=== PATIENT | female | born 1940 | race Caucasian/White ===

== ENCOUNTER 2023-09-19 09:33 | Inpatient (IN) | payer OTHER, SELFPAY ==
[2023-09-19] VITALS (46 sets, daily range): BP systolic 114–204; BP diastolic 47–157; PULSE 2–90; BMI 30.9
[2023-09-19] MEDS: DUONEB 3 ML INH (07:38)
[2023-09-19 07:39] LABS: % Basophils 0.9 % (0-2); % Eosinophils 2.1 % (0-6); % Immature Granulocytes 0.7 % (0-0.5); % Lymphocytes 29.5 % (20.5-51.1); % Monocytes 7.6 % (1.7-9.3); % Neutrophils 59.2 % (42.2-75.2); Absolute Basophils 0.1 10^3/uL (0-0.2); Absolute Eosinophils 0.3 10^3/uL (0-0.7); Absolute Immature Granulocytes 0.1 10^3/uL (0-0.05); Absolute Lymphocytes 4.5 10^3/uL (1.2-3.4); Absolute Monocytes 1.2 10^3/uL (0.1-0.6); Absolute Neutrophils 8.9 10^3/uL (1.4-6.5); Hematocrit 35.3 % (37.0-47.0); Hemoglobin 10.4 g/dL (12.0-16.0); Mean Corp Hgb Conc. 29.5 g/dL (33.0-37.0); Mean Corpuscular Hgb 25.2 pg (27.0-31.0); Mean Corpuscular Volume 85.7 fL (81.0-99.0); Mean Platelet Volume 9.8 fL (7.4-10.4); Nucleated Red Blood Cells % 0 %; Platelet Count 415 10^3/uL (130-400); Red Blood Cell Count 4.12 10^6/uL (4.20-5.40); Red Cell Dist. Width 15.8 % (11.5-14.5); White Blood Cell Count 15.1 10^3/uL (4.8-10.8)
[2023-09-19 07:51] LABS: INR 1.35; PT 16.5 Sec (11.4-14.6)
[2023-09-19 07:53] LABS: Lactic Acid 3.5 mmol/L (0.7-2.0)
[2023-09-19 07:54] LABS: ALT (SGPT) 15 U/L (0-35); AST (SGOT) 27 U/L (14-36); Albumin 4.1 g/dl (3.5-5.0); Alkaline Phosphatase 71 U/L (38-126); Blood Urea Nitrogen 22 mg/dl (7-17); Calcium 8.9 mg/dl (8.4-10.2); Carbon Dioxide 25 mmol/L (22-30); Chloride 105 mmol/L (98-107); Glucose 341 mg/dl (70-99); Potassium 4.2 mmol/L (3.5-5.1); Sodium 141 mmol/L (135-145); Total Bilirubin 0.3 mg/dl (0.2-1.3); Total Protein 6.7 g/dl (6.3-8.2); eGFR 56.95
--- NOTE | 2023-09-19 07:56 | ED.GENMED ---
History of Present Illness
General
Chief Complaint: Breathing Problem
Source: ambulance crew
Exam Limitations: clinical condition
Time Seen by Provider: 09/19/23 07:25
Nursing documentation reviewed up to this point in time: agreed with
History of Present Illness
History of Present Illness:
82-year-old female presents emergency department from [facility] complaining of shortness of breath. Began last night. Patient did not call EMS then because she thought it would improve. EMS found her with room air oxygen saturation of 30%.
It improved on nonrebreather to 95%. She had a moment of decreased responsiveness upon arrival.
Past History
Past History
ED Past Medical History: CAD and CHF
ED Past Surgical History: Cardiac (Cardiac stent)
Social History
Tobacco: Non-smoker
Alcohol: None
Drug: None
Living: assisted living
Review of Systems
Review of Systems
Allergies reviewed?: Yes
All Other Systems: Not applicable
Constitutional: Denies fever
Respiratory: Reports trouble breathing
Phy Exam
Physical Exam
Physical Exam:
Physical Exam
General: Severe respiratory distress on nonrebreather
Neck: supple. no meningeal signs. normal posterior pharynx
Heart: s1/s2 regular rate and rhythm, no murmur. equal radial
pulses.
HEENT: Pupils equal round reactive to light, EOMI
Lungs: Severe respiratory distress. Rales bilaterally
Abdomen: normal bowel sounds. not tender. no CVAT
Neuro: alert and responding to and. no focal neurological deficits cranial nerves II through XII intact
Skin: no rash
Psychiatric: well kept. interactive and cooperative
Extremities: no edema. no calf tenderness. negative homans. good distal pulses
Scores
Heart Failure Risk
Heart Failure Risk Score: Yes
History of Stroke or TIA: Yes
History of intubation for respiratory distress: No
Heart rate on ED arrival >/= 110: No
SaO2 <90% on arrival on room air: Yes
HR >/=110 during 3min walk test (or too ill to perform test): Yes
ECG has acute ischemic changes: No
Urea >/=12mmol/L (BUN 33.6mg/dL): No
Serum CO2>/=35mmol/L: No
Troponin I or T elevated to NE Level (0.4mg/dL): No
NT-proBNP >/=5,000ng/L (5,000pg/ml): Yes
HF Risk Score: 5
Admission Status: VERY HIGH RISK 39.8% Consider admission to hospital
Course
Orders/Labs/Results
Orders:
Orders
09/19/23 07:26
Cardiac Monitoring- Treatment ONCE
IV Insert/Care/Rem.- Treatment PRN
Ipratropium/Albuterol Sulfate [Duoneb] 3 ml INH R NOW STA
Pulse Ox/cont/shift [RESP] Stat
Quantity: 1
09/19/23 07:27
EKG [Electrocardiogram (*1)] Urgent
Reason for Study: Chest Pain
EKG- Treatment ONCE
09/19/23 07:28
Electrocardiogram (*1) Stat
Reason for Study: Other
Other Reason for Exam: pneumonia
EKG- Treatment ONCE
Portable Chest Xray [CR Chest Portable - 1 View] Urgent
Comment:
Reason For Exam: respiratory
Reason Study Needs to be Portable: Patient Unstable
Bipap [RESP] Urgent
Patient to use own unit?: No
Inspiratory Pressure (cm H2O): 10
Expiratory Pressure (cm H2O): 5
09/19/23 07:32
Complete Blood Count/With Diff Urgent
Comprehensive Metabolic Panel Urgent
Lactic Acid Q4H
Comment: CANCEL 2nd LACTIC ACID IF 1st LACTIC ACID IS LESS THAN 2
NT-proBNP Urgent
Prothrombin Time Urgent
Troponin I Urgent
09/19/23 07:48
Furosemide [Lasix] 40 mg IV NOW STA
Nitroglycerin 100 mg/250 ml [Nitroglycerin Premix] 100 mg in 250 ml IV NOW
Initial dose in mcg/min, then titrate:: 10
Titrate to keep:: SBP < 160 mmHg
Titrate by mcg/min:: 5 mcg/min, may increase by 10 mcg/min if dose > 20 mcg/min
Frequency of titrations (minutes):: every 3-5 minutes
Maximum dose in mcg/min:: 200
Begin to taper infusion when:: Remained at goal for 2hrs
Taper by mcg/min:: 5 mcg/min
Frequency of taper (minutes) if patient maintains goal:: 30
Taper to off?: Yes
If infusion off & no longer maintaining goal:: Contact Provider
09/19/23 07:52
Furosemide [Lasix] 40 mg .ROUTE .STK-MED ONE
Nitroglycerin 100 mg/250 ml [Nitroglycerin Premix] 100 mg in 250 ml .ROUTE .STK-MED
09/19/23 09:10
Admit/Transfer Patient As Directed
Co-Sign Provider:
Level of Care: Inpatient admission
Assign to:: IVU
Physician / Group: Inga
Diagnosis: Acute CHF
Reason for Hospitalization: Pulm edema, acute heart failure, cardiology consult
Expected length of stay greater than two midnights?: Yes
ELOS- Estimated Length of Stay in days: 3
I certify the patient meets the requirements for IP care: Yes
09/19/23 09:11
Code Status As Directed
Resuscitation Status: Limited DNR
Limited DNR: -No intubation
09/19/23 12:36
Acetaminophen [Tylenol] 650 mg PO Q6HPRN PRN
Amiodarone [Pacerone] 200 mg PO DAILY
Apixaban [Eliquis] 5 mg PO BID
Clopidogrel Bisulfate [Plavix] 75 mg PO DAILY
Metoprolol Xl [Toprol Xl] 25 mg PO DAILY
09/19/23 12:36
Echo 2D MMode Color/Doppler [Echo 2D MMode Color/Doppler] Routine
Reason for Study: CHF
CARDIOLOGY CONSULT Routine
Consulting Provider: Isacc Sandoval
Was physician already notified: Yes
Activity As Directed
Activity Level: With Assistance
I&O [Intake/ Output] As Directed
Frequency: q12h
09/19/23 13:32
Lactic Acid Q4H
Comment: CANCEL 2nd LACTIC ACID IF 1st LACTIC ACID IS LESS THAN 2
09/19/23 16:00
Furosemide [Lasix] 40 mg IV BID AT 0800,1600
09/20/23 06:00
BMP [Basic Metabolic Panel] IN AM
CBC/With Diff [Complete Blood Count/With Diff] IN AM
09/21/23 06:00
BMP [Basic Metabolic Panel] IN AM
Abnormal Lab Results
09/19/23
07:32
WBC 15.1 H 10^3/uL
(4.8-10.8)
RBC 4.12 L 10^6/uL
(4.20-5.40)
Hgb 10.4 L g/dL
(12.0-16.0)
Hct 35.3 L %
(37.0-47.0)
MCH 25.2 L pg
(27.0-31.0)
MCHC 29.5 L g/dL
(33.0-37.0)
RDW 15.8 H %
(11.5-14.5)
Plt Count 415 H 10^3/uL
(130-400)
Abs Immat Gran (auto) 0.1 H 10^3/uL
(0-0.05)
Absolute Neuts (auto) 8.9 H 10^3/uL
(1.4-6.5)
Absolute Lymphs (auto) 4.5 H 10^3/uL
(1.2-3.4)
Absolute Monos (auto) 1.2 H 10^3/uL
(0.1-0.6)
Immature Gran % 0.7 H %
(0-0.5)
PT 16.5 H Sec
(11.4-14.6)
BUN 22 H mg/dl
(7-17)
Glucose 341 H mg/dl
(70-99)
Lactic Acid 3.5 H mmol/L
(0.7-2.0)
09/19/23 07:32
09/19/23 07:32
Vital Signs
Initial and Last Documented VS:
Initial Vital Signs
Pulse Resp BP Pulse Ox
89 17 181/82 97
09/19/23 07:22 09/19/23 07:22 09/19/23 07:22 09/19/23 07:22
Last Documented Vital Signs
Temp Pulse Resp BP Pulse Ox
98.2 F 67 20 118/62 98
09/19/23 14:35 09/19/23 14:35 09/19/23 14:35 09/19/23 14:35 09/19/23 14:45
MDM/Problems Addressed
Differential Diagnosis Includes:
Respiratory failure, CHF, pneumonia
MDM/Problems Addressed:
82-year-old female with respiratory failure, CHF. Admit to hospitalist.
Chronic conditions affecting care: CAD and Cardiomyopathy
Acute Exacerbation and/or Progression of Chronic Illness: CAD and Cardiomyopathy
*Radiology
Radiology exam reviewed: preliminary read by ED provider (Chest x-ray shows bilateral pulmonary edema)
*Pulse Oximetry
Patient hypoxic: yes
*EKG
Interpreted by ED Provider?: Yes
EKG Intrepretation Date: 09/19/23
EKG Intrepretation Time: :24
Interpretation: abnormal
Comparison EKG: no comparison EKG present
Heart Rate: 89
Rate: normal
Rhythm: av sequential
[place]: normal axis
Interval: normal interval
QRS Pattern: normal QRS
Ischemia: no ischemia
*Lube Man Interpretation
Rate: normal
Interpretation: abnormal
Heart Rate: 89
Rhythm: av sequential
*Critical Care Note
Total Time (30-74mins, 75-104mins- exclusive of procedures): 30
comment:
Critical care statement: A total of 30 minutes of critical care time was provided for this patient. This includes management of unstable vital signs, evaluation of the patient at bedside, reviewing the patient's pertinent medical records, discussion
with consultants, review of old EKGs and review of pertinent medical records. This time with separate from time utilized to perform the aforementioned documented procedures
Patient Management
Social determinants of health affecting care: Living situation
Discussion with other providers: Hospitalist
Escalation/DeEscalation of care consider admission/obs:
Admit indicated
ED Attending Note
-
Portions of this chart may have been created with voice recognition software.� Occasional wrong word or��sound alike� substitutions may have occurred due to the inherent limitations of voice recognition software.
Discharge Plan
Departure
Patient Disposition: Admit
Date of Disposition: 09/19/23
Time of Disposition: 08:21
Admit to: ICU
Presentation/result/management discussed w/ accepting MD/DO: Hospitalist
Patient with high blood pressure during this ER visit?: Yes
Condition: Serious
Discharge Problem:
Acute exacerbation of CHF (congestive heart failure), Respiratory failure
Interventions
Interventions:
*Risk Screen - Suicide Last Done: 09/19/23 12:52
ED- Fall Risk Assessment Last Done: 09/19/23 07:27
*ED COVID-19 Vaccine History Last Done: 09/19/23 12:52
*Nursing Disposition Last Done: 09/19/23 12:30
ED- Cardiac Assessment Last Done: 09/19/23 07:27
ED- Pulmonary Assessment Last Done: 09/19/23 07:27
Discharge Date and Time
Discharge Date/Time: 09/19/23 12:30
[2023-09-19] MEDS: NITROGLYCERIN PREMIX 250 IV (08:04)
[2023-09-19 08:05] LABS: Troponin I < 0.012 ng/ml
[2023-09-19] MEDS: LASIX 40 MG IV ×2 (08:05→16:24)
[2023-09-19 08:26] LABS: NT-proBNP 5350 pg/ml
--- NOTE | 2023-09-19 09:29 | HPS.HSE ---
Addendum entered and electronically signed by Lion Xiong DO 09/19/23 10:02:
I was able to reach patient's daughter Guerline Castellanos, provided her an update. Phone number [phone].
I placed an order for records from [facility].
.
Original Note:
Family Physician
-
Family Physician: INTERVIEWE UNKNOWN - PT NOT
Chief Complaint
-
Shortness of breath
History of Present Illness
82-year-old female with a history of heart disease with shortness of breath that started last night. She was transferred to the emergency room early this morning from [facility]. Most of her medical care is in [facility]. Her
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 Reyes.
She denies chest pressure. Has had a cough lately.
Medical History
Past Medical History
Past Medical History: Reports Other
Additional Past Medical History:
CAD/STEMI
Chronic heart failure preserved EF
Essential hypertension
Hypothyroidism
Paroxysmal atrial fibrillation
Stroke
Osteoporosis
Ambulatory dysfunction
Hyperlipidemia
Kyphosis
Past Surgical History: Reports Other
Additional Past Surgical History:
Pacemaker
Social History
Tobacco: Non-smoker
Alcohol: None
Drug: None
Living: Assisted Living
Family History
Family History: Not pertinent
Allergies / Home Medications
Allergies reflects when Allergies were last updated in [facility].
Home Medications with original date entered in [facility]
Allergy/Medication List:
Allergies
Allergy/AdvReac Type Severity Reaction Status Date / Time
No Known Allergies Allergy Verified 06/14/22 14:15
Home Medications
alendronate 70 mg tablet 70 mg PO WEEKLY 06/14/22
atenolol 50 mg tablet 75 mg PO DAILY 06/14/22
calcium carbonate 600 mg-vitamin D3 5 mcg (200 unit) capsule (Calcium 600 + D(3)) 2 cap PO BID 06/14/22
ibuprofen 200 mg capsule 400 mg PO Q6H PRN mild pain 06/14/22
levothyroxine 100 mcg tablet 100 mcg PO DAILY 06/14/22
multivitamin 1 tab PO DAILY 06/14/22
psyllium husk 0.4 gram capsule (Fiber (psyllium husk)) 0.4 g PO DAILY 06/14/22
simvastatin 20 mg tablet 20 mg PO HS 06/14/22
trazodone 50 mg tablet 50 mg PO HS PRN sleep 06/14/22
Review of Systems
-
History Source: Patient
A 12 point ROS was completed and negative except as noted: Yes
Respiratory: Reports Trouble Breathing
Physical Exam
Vital Signs
Vital Signs
Temp Pulse Resp BP Pulse Ox
98.4 F 77 23 146/66 96
09/19/23 07:54 09/19/23 08:20 09/19/23 08:20 09/19/23 08:20 09/19/23 08:20
Physical Exam
General: Well Developed, Well Nourished, No Apparent Distress and Comfortable
HEENT: NormoCephalic, Anicteric and Moist mucous membranes
Respiratory: Rales
Cardiac: S1/S2 and Regular Rhythm
Breast: Deferred by me
GI: Soft, Non Tender and Non Distended
Genito-urinary: Deferred by me
Musculoskeletal: No Clubbing, No Cyanosis and No Edema
Skin: Warm and Dry
Neuro: AO x 3
Hematologic/Lymphatic: No Lymphadenopathy
Psych: Calm
Laboratory Results
-
09/19/23 07:32
09/19/23 07:32
Laboratory Results
PT 16.5 Sec (11.4-14.6) H 09/19/23 07:32
INR 1.35 09/19/23 07:32
Lactic Acid 3.5 mmol/L (0.7-2.0) H 09/19/23 07:32
Total Bilirubin 0.3 mg/dl (0.2-1.3) 09/19/23 07:32
AST 27 U/L (14-36) 09/19/23 07:32
ALT 15 U/L (0-35) 09/19/23 07:32
Alkaline Phosphatase 71 U/L (38-126) 09/19/23 07:32
Troponin I < 0.012 ng/ml 09/19/23 07:32
Impression/Plan
-
Acute hypoxic respiratory failure -due to acute pulmonary edema due to acute heart failure exacerbation. Pulse ox reported in the 30% range prior to arrival. Placed on BiPAP in the emergency room.
Already feeling better, transitioned to 4 L nasal cannula with pulse ox in the 90 percentile range. Admit to IVU.
Acute on chronic heart failure with preserved EF exacerbation -presentation with acute pulmonary edema. Chest x-ray reviewed. BNP 5330. Continue IV Lasix. Consult cardiology. Check echocardiogram.
CAD -with prior LAD stent in June 2022, [facility]. Troponin this morning negative, will trend. EKG shows atrial sensed ventricular paced rhythm. No previous EKGs available. Continue Plavix.
Essential hypertension with hypertensive emergency -continue nitroglycerin drip. Resume home meds including metoprolol, losartan. Anticipate blood pressure improvement with diuresis.
Paroxysmal atrial fibrillation - continue Eliquis, amiodarone.
Hyperlipidemia -on simvastatin.
History of stroke
Hypothyroidism -continue levothyroxine.
Permanent pacemaker
Osteoporosis
Limited DNR -no intubation, she is okay with CPR.
I left a voicemail for daughter Ashley to call me back.
--- NOTE | 2023-09-19 12:45 | PTCARENOTE ---
Received the patient from the ED in a stretcher. The patient is aoox3, BP 164/62, 98% on 3L. NSR noted on the monitor. Nitroglycerin gtt running at 10mcg/min. She has no complaints of pain. Scattered crackles heard throughout lungs. She ambulated to
the bed x1 assist and without difficulty. I oriented her to her room and her call rosas is within reach.
[2023-09-19] MEDS: PACERONE 200 MG PO (13:27)
[2023-09-19] MEDS: ELIQUIS 5 MG PO ×2 (13:27→20:34)
[2023-09-19] MEDS: PLAVIX 75 MG PO (13:28)
[2023-09-19] MEDS: TOPROL XL 25 MG PO (13:28)
[2023-09-19] MEDS: COZAAR 50 MG PO (13:28)
[2023-09-19 13:51] LABS: Lactic Acid 2.6 mmol/L (0.7-2.0)
[2023-09-19 14:04] LABS: Troponin I 0.485 ng/ml
--- NOTE | 2023-09-19 15:07 | CON.CAR ---
Consultation
Consultation Request
Date/Time Consultation Requested: 09/19/23 12:30pm
Date/Time Consultation Performed: 09/19/23 3:00pm
Requesting Provider: Dr Xiong
Performing Provider: Dr Sandoval
Reason for Consultation: CHF
Medical History
-
Chief Complaint: shortness of breath
History of Present Illness:
82-year-old female with past medical history of coronary artery disease/PCI/VT, permanent pacemaker, chronic heart failure with unknown EF, hypertension, paroxysmal atrial fibrillation, CVA, stroke, and osteoporosis presents to [facility]
from [facility] with an episode of sudden shortness of breath and respiratory distress. She states she was in her usual state of health had dinner at [facility] when suddenly had an episode of severe shortness of breath, orthopnea was unable
to breathe. She denied any overt chest pains.
She was called and she was brought to the [facility] emergency room where she was found to be in respiratory distress requiring BiPAP, high. Nitroglycerin, and morphine. She was treated with IV Lasix where she clinically improved. She states that
she had an episode of congestive heart failure in December 2022. She also had a pacemaker placed in the setting of a PCI in June 2022. Her family states she has other significant coronary artery disease.
She currently feels well with no palpitations, dizziness, or dyspnea.
Past Medical History
Past Medical History: Arrhythmias (Paroxysmal atrial fibrillation status post dual-chamber pacemaker), CAD (Status post PCI 2022 with significant CAD), CHF (Chronic heart failure with unknown ejection fraction.), CVA, HTN, Hypercholesterolemia and
Hypothyroidism
Past Surgical History: Cardiac (pacemaker 2022)
Social History
Tobacco: Non-Smoker
Alcohol: None
Drug: None
Living: [facility]
Employment: Retired
Family History
Family History: Hypertension
Allergies / Home Medications
Allergy/AdvReac Type Severity Reaction Status Date / Time
No Known Allergies Allergy Verified 06/14/22 14:15
�Medication �Instructions �Recorded �Confirmed �Type
alendronate 70 mg tablet 70 mg PO MO 06/14/22 09/19/23 History
levothyroxine 100 mcg tablet 100 mcg PO DAILY 06/14/22 09/19/23 History
multivitamin 1 tab PO DAILY 06/14/22 09/19/23 History
simvastatin 20 mg tablet 20 mg PO HS 06/14/22 09/19/23 History
trazodone 50 mg tablet 50 mg PO HS sleep 06/14/22 09/19/23 History
apixaban 5 mg tablet (Eliquis) 5 mg PO BID 09/19/23 09/19/23 History
calcium carbonate (Calcium 600) 600 mg PO DAILY 09/19/23 09/19/23 History
clopidogrel 75 mg tablet (Plavix) 75 mg PO DAILY 09/19/23 09/19/23 History
furosemide 20 mg tablet (Lasix) 20 mg PO DAILY 09/19/23 09/19/23 History
losartan 50 mg tablet 50 mg PO DAILY 09/19/23 09/19/23 History
metoprolol succinate 25 mg 25 mg PO DAILY 09/19/23 09/19/23 History
tablet,extended release 24 hr
(Toprol XL)
sennosides 8.6 mg tablet (senna) 8.6 mg PO HS 09/19/23 09/19/23 History
trazodone 50 mg tablet 25 mg PO HS PRN f no asleep from 09/19/23 09/19/23 History
1st dose and wakes up at 2am
Review of Systems
-
History Source: Patient and Family
Constitutional: Fatigue
EENT: No Symptoms
Respiratory: Cough and Trouble Breathing
Cardiac: Chest Pain
Abdomen/GI: No Symptoms
: No Symptoms
Musculoskeletal: Edema
Skin: No Symptoms
Neurological: No Symptoms
Endocrine: No Symptoms
Hematologic/Lymphatic: No Symptoms
Physical Exam
Vital Signs
Temp Pulse Resp BP Pulse Ox
98.2 F 67 20 118/62 98
09/19/23 14:35 09/19/23 14:35 09/19/23 14:35 09/19/23 14:35 09/19/23 14:45
Lab Results
09/19/23 07:32
09/19/23 07:32
Troponin I 0.485 ng/ml H* D 09/19/23 13:32
[id number] Pept 5350 pg/ml 09/19/23 07:32
Physical Exam
General: No Apparent Distress and Comfortable
HEENT: Normocephalic and Anicteric
Respiratory: Rhonchi and Non Labored Respirations
Cardiac: S1/S2, Regular Rhythm and Murmur (/ syst LSB)
GI: Soft, Non Tender and Non Distended
Genito-urinary: No Costovertebral Tender
Musculoskeletal: No Clubbing
Skin: Warm
Neuro: AO x 3
Hematologic/Lymphatic: No Lymphadenopathy
Psych: Calm
Impression / Plan
-
Assess:
Acute pulmonary edema/Acute HF unknown EF
hx CAD/PCI 2022
permanent pacemaker
abnormal troponin
HTN
PAF
CVA
hyperlipidemia
kyphoisis
Cards: Dr Reyes
Plan:
She presents with acute pulmonary edema. She has a history of congestive heart failure with unknown EF, significant coronary artery disease with a PCI in 2022 and pacemaker. According to family she has significant disease in other vessels as well.
Her troponin is also abnormal. It remains unclear whether this is an abnormal troponin from nonischemic myocardial injury with congestive heart failure or possible ACS/NSTEMI. Will continue to trend the troponin.
Continue Lasix 40 mg IV twice daily. Continue Plavix. Will hold Eliquis tonight. Will hold off on IV heparin for now. Add aspirin.
Continue Toprol and Cozaar. Will check echo in a.m. and obtain records from Dr. Reyes's office.
Check lipids and add atorvastatin 40 mg daily.
Discussed with family
Data Reviewed
-
EKG: Tracing Personally Visualized and interpreted
Medical Tests (Nuc Med, Echo etc): Report Reviewed by me
Labs: Labs Reviewed by me
Old Records: Requested
[2023-09-19] MEDS: FLUSH (NSS) 2 FLUSH IV (16:24)
--- NOTE | 2023-09-19 16:46 | PTCARENOTE ---
I weaned the patient down to 1L of O2. Her pulse is 98% on 1L. I tried to wean her off completely however, she destated to 90% on RA and was dyspneic on exertion.
[2023-09-19 17:56] LABS: Lactic Acid 1.4 mmol/L (0.7-2.0)
[2023-09-19 20:21] LABS: Troponin I 0.722 ng/ml
[2023-09-19] MEDS: APRESOLINE 5 MG IV (21:56)
[2023-09-19] MEDS: ZOFRAN 4 MG IV (22:17)
[2023-09-20] VITALS (10 sets, daily range): BP systolic 90–157; BP diastolic 50–105; BMI 30.5
[2023-09-20 05:13] LABS: % Basophils 0.4 % (0-2); % Eosinophils 0.2 % (0-6); % Immature Granulocytes 0.5 % (0-0.5); % Lymphocytes 10.6 % (20.5-51.1); % Monocytes 6.9 % (1.7-9.3); % Neutrophils 81.4 % (42.2-75.2); Absolute Basophils 0.1 10^3/uL (0-0.2); Absolute Immature Granulocytes 0.1 10^3/uL (0-0.05); Absolute Lymphocytes 1.3 10^3/uL (1.2-3.4); Absolute Monocytes 0.8 10^3/uL (0.1-0.6); Absolute Neutrophils 9.8 10^3/uL (1.4-6.5); Hematocrit 28.8 % (37.0-47.0); Hemoglobin 8.8 g/dL (12.0-16.0); Mean Corp Hgb Conc. 30.6 g/dL (33.0-37.0); Mean Corpuscular Hgb 24.7 pg (27.0-31.0); Mean Corpuscular Volume 80.9 fL (81.0-99.0); Mean Platelet Volume 9.5 fL (7.4-10.4); Nucleated Red Blood Cells % 0 %; Platelet Count 318 10^3/uL (130-400); Red Blood Cell Count 3.56 10^6/uL (4.20-5.40); Red Cell Dist. Width 15.9 % (11.5-14.5); White Blood Cell Count 12.1 10^3/uL (4.8-10.8)
[2023-09-20 05:34] LABS: Blood Urea Nitrogen 28 mg/dl (7-17); Calcium 9.1 mg/dl (8.4-10.2); Carbon Dioxide 32 mmol/L (22-30); Chloride 101 mmol/L (98-107); Estimated Creatinine Clearance 41 ml/min; Glucose 89 mg/dl (70-99); Potassium 3.9 mmol/L (3.5-5.1); Sodium 141 mmol/L (135-145); eGFR 56.95
[2023-09-20 05:42] LABS: Troponin I 0.329 ng/ml
[2023-09-20] MEDS: SYNTHROID 100 MCG PO (07:48)
--- NOTE | 2023-09-20 09:05 | W.PN.CARDCBS ---
Addendum entered and electronically signed by Sami Young MD 09/20/23 12:38:
I saw and examined the patient.
The ELEMENTARY SCHOOL ART TEACHER or PA's note was reviewed and I agree with the note.
Comment: General: Well developed, well nourished in NAD.
Neck: Supple, no JVD, HJR, carotids +2 B/L, no bruits bilaterally.
Heart: Non displaced PMI, RRR, 2/6 basal systolic murmur, No S3, S4, no rubs.
Lungs: Scattered rhonchi
Extremities: No clubbing, cyanosis or edema bilaterally.
Neuro: Grossly nonfocal, awake, alert and oriented x3.
Will continue with IV diuresis. Check echocardiogram. Likely treat elevated troponin conservatively but will await ejection fraction. Patient is followed at [facility] vascular normally and could also be decided as an outpatient.
Original Note:
Today's Communication / Plan
-
Check echo
Continue IV diuresis
Replete potassium
Wean oxygen as tolerated
Impression / Plan
-
Outpatient floor sanding machine operator: Dr. Elijah Reyes
Assess:
Presented 09/19/2023 with progressively worsening shortness of breath
Acute pulmonary edema
Acute HF preserved EF, proBNP 5350
abnormal troponin, Peaked 0.722
hx CAD/PCI 2022
Sick sinus syndrome/tachybradycardia syndrome 06/2022
Biotronik permanent pacemaker
HTN
PAF
CVA
hyperlipidemia
kyphosis
Hysterectomy
Echo 09/03/2022 ([facility]): EF 60 to 65% grade 1 DD. Mild MR. Mild with peak/mean gradient 18/11 mmHg with MUNIRA 1.3 cm�. Trivial pericardial effusion 0.7 cm
Echo 09/20/2023: Ordered
Cardiac catheterization June 2022 ([facility]): Conclusion severe single-vessel CAD with 80 to 90% proximal LAD status post 2.75 x 23 mm Xience LAVON, moderate stenosis in proximal RPL and D1 branches. Normal right and left filling pressures. Preserved
cardiac output and index
Plan:
She presented 09/19/2023 with a progressively worsening shortness of breath cute pulmonary edema.
-She has a history of congestive heart failure with preserved EF. Per review of outpatient records patient had similar episode of flash pulmonary edema in setting of hypertensive urgency in December 2022 which responded to diuretics and increase in
antihypertensive medications
-proBNP 5350
-Still appears to be volume overloaded. continue IV diuresis with Lasix 40 mg twice daily. {Patient was on Lasix 40 mg daily as outpatient upon review of outpt records}
-Patient reports baseline weight 161-163 lbs.
-Replete potassium
-Currently on 2 L of oxygen, wean as tolerated
-Continue Toprol, losartan
-check echo
Known coronary artery disease with a LAD LAVON 06/2022 & mild to moderate
-Reviewed outpatient records. Patient was also found to have moderate stenosis in proximal RPL and D1 branches in June 2022.
-Abnormal troponin, peaked at 0.722. Denies chest pain and shortness of breath improving.
-Abnormal troponin suspect nonischemic myocardial injury with HTN/congestive heart failure/Pulm edema.
-Check echo
-Continue Plavix, Toprol, losartan
-Check lipids and add atorvastatin 40 mg daily. {Was on simvastatin 20 mg as outpatient}
Paroxysmal atrial fibrillation and tachybradycardia syndrome
-Eliquis held evening of and started on Aspirin.
-Likely will resume Eliquis later today as long as no invasive procedures being considered
Hypertension
-Per review of outpatient records patient had similar episode of pulmonary edema in the setting of hypertensive urgency in 2022.
-Blood pressure significantly elevated upon admission however appears to be improving. Continue to monitor and follow with diuresis
-Could consider up titration of losartan to 100 mg daily
Have requested records from Dr. Reyes's office on 09/20/2023
History of Present Illness 09/19/2023:
82-year-old female with past medical history of coronary artery disease/PCI/DC, permanent pacemaker, chronic heart failure with unknown EF, hypertension, paroxysmal atrial fibrillation, CVA, stroke, and osteoporosis presents to [facility]
from [facility] with an episode of sudden shortness of breath and respiratory distress. She states she was in her usual state of health had dinner at [facility] when suddenly had an episode of severe shortness of breath, orthopnea was unable
to breathe. She denied any overt chest pains.
She was called and she was brought to the [place] emergency room where she was found to be in respiratory distress requiring BiPAP, high. Nitroglycerin, and morphine. She was treated with IV Lasix where she clinically improved. She states that
she had an episode of congestive heart failure in December 2022. She also had a pacemaker placed in the setting of a PCI in June 2022. Her family states she has other significant coronary artery disease.
She currently feels well with no palpitations, dizziness, or dyspnea.
Progress Note - Integrated Circuit Ic Layout Designer
Subjective
Date of Service: September 20, 2023
Patient seen and examined. Patient resting comfortably in bed. Still wearing oxygen but reports significantly less short of breath. She denies chest pain
Objective
Labs:
09/20/23 04:45
09/20/23 04:45
Labs
Hgb 8.8 g/dL (12.0-16.0) L 09/20/23 04:45
Hct 28.8 % (37.0-47.0) L 09/20/23 04:45
Plt Count 318 10^3/uL (130-400) D 09/20/23 04:45
PT 16.5 Sec (11.4-14.6) H 09/19/23 07:32
INR 1.35 09/19/23 07:32
Sodium 141 mmol/L (135-145) 09/20/23 04:45
Potassium 3.9 mmol/L (3.5-5.1) 09/20/23 04:45
BUN 28 mg/dl (7-17) H 09/20/23 04:45
Creatinine 1.0 mg/dL (0.6-1.0) 09/20/23 04:45
Glucose 89 mg/dl (70-99) 09/20/23 04:45
Troponins
09/19/23 09/19/23 09/19/23
07:32 13:32 19:47
Troponin I < 0.012 0.485 H* D 0.722 H* D
09/20/23
04:45
Troponin I 0.329 H*
Vital Signs and I&O:
Vital Signs
Temp Pulse Resp BP Pulse Ox
98.2 F 69 20 148/54 100
09/20/23 07:45 09/20/23 07:45 09/20/23 07:45 09/20/23 07:45 09/20/23 07:45
Vital Signs
Temp Pulse Resp BP Pulse Ox
98.2 F 69 20 148/54 100
09/20/23 07:45 09/20/23 07:45 09/20/23 07:45 09/20/23 07:45 09/20/23 07:45
Intake & Output
09/18/23 09/19/23 09/20/23 09/21/23
06:59 06:59 06:59 06:59
Output Total 2049
Balance -2049 / -2049
Physical Exam
Physical Exam
GEN: No distress, awake, Ox3; sitting up in bed
HEENT: supple, anicteric, mmm
LUNGS: Crackles bilateral bases right greater than left otherwise CTA, no wheezes/rales; wearing 2 L of oxygen via nasal cannula
CV: Reg, S1/S2, 2/6 harsh radiating systolic murmur, no rub or gallop
ABD: soft, BS+, NT/ND
EXT: Trace lower extremity edema
NEURO: Gross non-focal
SKIN: No rash, warm, dry, pink
[2023-09-20] MEDS: ELIQUIS 5 MG PO ×2 (09:12→20:20)
[2023-09-20] MEDS: PACERONE 200 MG PO (09:12)
[2023-09-20] MEDS: PLAVIX 75 MG PO (09:12)
[2023-09-20] MEDS: LASIX 40 MG IV ×2 (09:13→15:27)
[2023-09-20] MEDS: COZAAR 50 MG PO (09:13)
[2023-09-20] MEDS: TOPROL XL 25 MG PO (09:13)
[2023-09-20] MEDS: KCL 20 MEQ PO (09:32)
[2023-09-20 10:43] LABS: Procalcitonin 0.42 ng/ml (0.0-0.25)
[2023-09-20 11:05] LABS: HDL Cholesterol 58 mg/dl; LDL Cholesterol, Calculated 86 mg/dl; Total Cholesterol 160 mg/dl (50-199); Triglyceride 81 mg/dl (10-149); Very Low Density Lipoprotein 16 mg/dl (0-30)
--- NOTE | 2023-09-20 13:18 | CM ---
Reviewed chart. Met with Mrs Linn to review discharge plans. She states prior to admission she resides alone in an apartment at [facility]. She states she has been there for three years. She states prior to admission she
ambulates in the apartment and short distances with a rolling walker and uses a electric wheelchair for longer distances. 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 She states she has has [facility] in the past. She
states she has a prescription plan and uses [facility]. Will need to see her current functional level to see if she will have any skilled care needs. Medical work-up in progress. The discharge plan is to return home [facility] if indicated when medically stable.
--- NOTE | 2023-09-20 14:51 | W.PN.HOSP.TC ---
Today's Communication/Plan
-
Monitor vital signs see plan
Echo
Continue with diuresis
Procal positive, start antibiotics
Spoke with son-in-law at bedside
Assessment / Plan
Assessment / Plan
General: Well Developed, Well Nourished, No Apparent Distress and Comfortable
HEENT: NormoCephalic, Anicteric and Moist mucous membranes
Respiratory: Rales
Cardiac: S1/S2 and Regular Rhythm
GI: Soft, Non Tender and Non Distended
Musculoskeletal: No Edema
Skin: Warm and Dry
Neuro: AO x 3
Psych: Calm
Acute hypoxic respiratory failure -due to acute pulmonary edema due to acute heart failure exacerbation and PNA. Placed on BiPAP in the emergency room. now off o2 and on room air
Continue with diuresis
Check echo
Records requested
Acute on chronic heart failure with preserved EF exacerbation -presentation with acute pulmonary edema. Chest x-ray reviewed. BNP 5330. Continue IV Lasix. Consult cardiology. Check echocardiogram.
Chest x-ray noted with possible diffuse interstitial pneumonia
Pro-Joel positive, start cef and doxy
check Legionella, strep
Troponin elevation, unclear etiology if it is nonischemic myocardial injury or acute coronary syndrome
Cardiology at this time wanted to manage medically. On Eliquis, Plavix
trop pealked 0.7
CAD -with prior LAD stent in June 2022, [facility]. Troponin this morning negative, will trend. EKG shows atrial sensed ventricular paced rhythm. No previous EKGs available. Continue Plavix.
Essential hypertension with hypertensive emergency -continue metoprolol, losartan. Anticipate blood pressure improvement with diuresis.
Paroxysmal atrial fibrillation - continue Eliquis, amiodarone.
Hyperlipidemia -on simvastatin.
History of stroke
Hypothyroidism -continue levothyroxine.
Permanent pacemaker
Osteoporosis
Limited DNR -no intubation, she is okay with CPR.
I spent a total of 52 minutes with the patient or on the floor. More than 50% of this time involved counseling and coordination of care.
Anticipated Discharge: > 48 hours
Subjective/Interval History
-
Date of Service: September 20, 2023
denies pain
Objective Data
-
Labs:
Laboratory Results
09/20/23
04:45
WBC 12.1 H
Hgb 8.8 L
Hct 28.8 L
Plt Count 318 D
Sodium 141
Potassium 3.9
Chloride 101
Carbon Dioxide 32 H
BUN 28 H
Creatinine 1.0
Glucose 89
Calcium 9.1
Vital Signs:
Vital Signs
Temp Pulse Resp BP Pulse Ox
98.3 F 66 16 115/50 96
09/20/23 12:09 09/20/23 12:09 09/20/23 12:09 09/20/23 12:13 09/20/23 12:09
I&O
09/19/23 09/20/23 09/21/23
06:59 06:59 06:59
Intake Total 480 / 480
Output Total 2049
Balance -2049 / -2049 480 / 480
[2023-09-20] MEDS: VISBIOME 1 CAP PO (16:22)
[2023-09-20] MEDS: ROCEPHIN 1000 MG IV (16:22)
[2023-09-20] MEDS: STERILE WATER FOR INJECTION 10 ML IV (16:22)
[2023-09-20] MEDS: VIBRAMYCIN 100 MG PO (20:20)
[2023-09-21] VITALS (11 sets, daily range): BP systolic 97–146; BP diastolic 44–97; PULSE 96–97; O2SAT 91–92; BMI 30.2
[2023-09-21] MEDS: SYNTHROID 100 MCG PO (05:10)
[2023-09-21 05:19] LABS: % Basophils 0.5 % (0-2); % Eosinophils 0.9 % (0-6); % Immature Granulocytes 0.3 % (0-0.5); % Lymphocytes 15.3 % (20.5-51.1); % Monocytes 8.6 % (1.7-9.3); % Neutrophils 74.4 % (42.2-75.2); Absolute Basophils 0.1 10^3/uL (0-0.2); Absolute Eosinophils 0.1 10^3/uL (0-0.7); Absolute Lymphocytes 1.6 10^3/uL (1.2-3.4); Absolute Monocytes 0.9 10^3/uL (0.1-0.6); Absolute Neutrophils 7.9 10^3/uL (1.4-6.5); Hematocrit 31.3 % (37.0-47.0); Hemoglobin 9.4 g/dL (12.0-16.0); Mean Corpuscular Hgb 24.9 pg (27.0-31.0); Mean Corpuscular Volume 82.8 fL (81.0-99.0); Mean Platelet Volume 9.6 fL (7.4-10.4); Nucleated Red Blood Cells % 0 %; Platelet Count 342 10^3/uL (130-400); Red Blood Cell Count 3.78 10^6/uL (4.20-5.40); Red Cell Dist. Width 15.8 % (11.5-14.5); White Blood Cell Count 10.6 10^3/uL (4.8-10.8)
[2023-09-21 05:45] LABS: Blood Urea Nitrogen 36 mg/dl (7-17); Calcium 9.1 mg/dl (8.4-10.2); Carbon Dioxide 34 mmol/L (22-30); Chloride 102 mmol/L (98-107); Estimated Creatinine Clearance 34 ml/min; Glucose 87 mg/dl (70-99); Potassium 4.3 mmol/L (3.5-5.1); Sodium 140 mmol/L (135-145); eGFR 45.76
--- NOTE | 2023-09-21 06:37 | PTCARENOTE ---
Assumed care of patient at change of shift. VSS on 2L O2 via NC. AV paced on monitor. Denies pain or SOB. Transferring to commode independently without difficulty. Can make needs known. Call rosas within reach.
[2023-09-21] MEDS: ELIQUIS 5 MG PO (08:28)
[2023-09-21] MEDS: TOPROL XL 25 MG PO (08:29)
[2023-09-21] MEDS: VIBRAMYCIN 100 MG PO ×2 (08:31→19:24)
[2023-09-21] MEDS: PACERONE 200 MG PO (08:31)
[2023-09-21] MEDS: PLAVIX 75 MG PO (08:31)
[2023-09-21] MEDS: VISBIOME 1 CAP PO (08:32)
[2023-09-21] MEDS: LASIX 40 MG IV ×2 (09:15→16:23)
[2023-09-21] MEDS: COZAAR 50 MG PO (09:15)
--- NOTE | 2023-09-21 10:16 | W.PN.CARDCBS ---
Addendum entered and electronically signed by Sami Young MD 09/21/23 13:31:
I saw and examined the patient.
The MANAGER MANAGED BACKUP SERVICES or PA's note was reviewed and I agree with the note.
Comment: General: Well developed, well nourished in NAD.
Neck: Supple, no JVD, HJR, carotids +2 B/L, no bruits bilaterally.
Heart: Non displaced PMI, RRR,2/6 basal systolic murmur, No S3, S4, no rubs.
Lungs: Scattered rhonchi
Extremities: No clubbing, cyanosis or edema bilaterally.
Neuro: Grossly nonfocal, awake, alert and oriented x3.
Will continue IV diuresis. She remains on oxygen. Of note echocardiogram with new regional wall motion abnormality and elevated troponin. May consider cardiac catheterization. Await callback from patient's commercial driver's license driver Dr. Reyes. Will hold
Eliquis
Original Note:
Today's Communication / Plan
-
Continue IV diuresis
Detailed discussion regarding new wall motion abnormalities and reduced ejection fraction on echo. Patient considering cardiac catheterization
Would need to hold Eliquis for at least 24 hours before catheterization
Impression / Plan
-
Outpatient commercial driver's license driver: Dr. Elijah Reyes
Assess:
Presented 09/19/2023 with progressively worsening shortness of breath
Acute pulmonary edema
Acute HF preserved EF, proBNP 5350
abnormal troponin, Peaked 0.722
hx CAD/PCI 2022
Sick sinus syndrome/tachybradycardia syndrome 06/2022
Biotronik permanent pacemaker
HTN
PAF
CVA
hyperlipidemia
kyphosis
Hysterectomy
Echo 09/03/2022 ([facility]): EF 60 to 65% grade 1 DD. Mild MR. Mild with peak/mean gradient 18/11 mmHg with MUNIRA 1.3 cm�. Trivial pericardial effusion 0.7 cm
Echo 09/20/2023: EF 50 to 55% with lateral wall hypokinesis, possible anterior wall hypokinesis. Mild concentric LVH, stage II DD. Mild to moderate MR. Moderate aortic stenosis peak/mean 34/22 mmHg with MUNIRA 0.7 cm�, mild AI. Mild TR, PAP 39 mmHg
Cardiac catheterization June 2022 ([facility]): Conclusion severe single-vessel CAD with 80 to 90% proximal LAD status post 2.75 x 23 mm Xience LAVON, moderate stenosis in proximal RPL and D1 branches. Normal right and left filling pressures. Preserved
cardiac output and index
Plan:
She presented 09/19/2023 with a progressively worsening shortness of breath, acute pulmonary edema.
-She has a history of congestive heart failure with preserved EF. Per review of outpatient records patient had similar episode of flash pulmonary edema in setting of hypertensive urgency in December 2022 which responded to diuretics and increase in
antihypertensive medications
-proBNP 5350
-Weight down 4 pounds since admission. Appears to be improving from volume standpoint.
-Slight bump in BUN/creatinine 36/1.2
-Continue IV diuresis with Lasix 40 mg twice daily and likely transition to oral Lasix 09/21. {Patient was on Lasix 40 mg daily as outpatient upon review of outpt records}
-Currently on 2 L of oxygen, attempt to wean off
-Continue Toprol, losartan
-check echo
Known coronary artery disease with a LAD LAVON 06/2022 & mild to moderate
-Reviewed outpatient records. Patient was also found to have moderate stenosis in proximal RPL and D1 branches in June 2022.
-Abnormal troponin, peaked at 0.722. Denies chest pain and shortness of breath improving.
-Echo shows mildly reduced ejection fraction with EF 50 to 55% with lateral wall and suspected anterior wall hypokinesis. There is also slight progression in aortic stenosis with peak/mean gradient 34/22 mmHg
-Given findings of echocardiogram with newly reduced ejection fraction and wall motion abnormalities concern for NSTEMI.
-Reviewed findings with patient and son-in-law at bedside. Discussed undergoing ischemic evaluation with cardiac catheterization. Patient requesting that we reach out to Dr. Hernandez her outpatient commercial driver's license driver to discuss. If patient agreeable to
proceed with catheterization would need to allow for washout of Eliquis.
-Continue Plavix, Toprol, losartan
-Check lipids and add atorvastatin 40 mg daily. {Was on simvastatin 20 mg as outpatient}
Paroxysmal atrial fibrillation and tachybradycardia syndrome
-On chronic anti-coagulation w/ Eliquis. Would need to discontinue anticoagulation for cardiac catheterization.
-Has Biotronik pacemaker
Hypertension
-Per review of outpatient records patient had similar episode of pulmonary edema in the setting of hypertensive urgency in 2022.
-Blood pressure significantly elevated upon admission however has improved with diuresis
-Continue Toprol and losartan
Above was discussed with the patient and her son-in-law at great detail, nursing and hospitalist. I also reached out to Dr. Hernandez's office and requested callback to discuss.
History of Present Illness 09/19/2023:
82-year-old female with past medical history of coronary artery disease/PCI/NH, permanent pacemaker, chronic heart failure with unknown EF, hypertension, paroxysmal atrial fibrillation, CVA, stroke, and osteoporosis presents to [facility]
from [facility] with an episode of sudden shortness of breath and respiratory distress. She states she was in her usual state of health had dinner at [facility] when suddenly had an episode of severe shortness of breath, orthopnea was unable
to breathe. She denied any overt chest pains.
She was called and she was brought to the [place] emergency room where she was found to be in respiratory distress requiring BiPAP, high. Nitroglycerin, and morphine. She was treated with IV Lasix where she clinically improved. She states that
she had an episode of congestive heart failure in December 2022. She also had a pacemaker placed in the setting of a PCI in June 2022. Her family states she has other significant coronary artery disease.
She currently feels well with no palpitations, dizziness, or dyspnea.
Progress Note - Transformation Analyst
Subjective
Date of Service: September 21, 2023
Patient seen and examined. Patient sitting comfortably in bed. She notes improving shortness of breath. She reports they attempted to wean her off oxygen but she desaturated. She denies chest pain. She is still getting winded when she ambulates
to the restroom or around the room.
Objective
Labs:
09/21/23 05:04
09/21/23 05:04
Labs
Hgb 9.4 g/dL (12.0-16.0) L 09/21/23 05:04
Hct 31.3 % (37.0-47.0) L 09/21/23 05:04
Plt Count 342 10^3/uL (130-400) 09/21/23 05:04
PT 16.5 Sec (11.4-14.6) H 09/19/23 07:32
INR 1.35 09/19/23 07:32
Sodium 140 mmol/L (135-145) 09/21/23 05:04
Potassium 4.3 mmol/L (3.5-5.1) 09/21/23 05:04
BUN 36 mg/dl (7-17) H 09/21/23 05:04
Creatinine 1.2 mg/dL (0.6-1.0) H 09/21/23 05:04
Glucose 87 mg/dl (70-99) 09/21/23 05:04
Troponins
09/19/23 09/19/23 09/19/23
07:32 13:32 19:47
Troponin I < 0.012 0.485 H* D 0.722 H* D
09/20/23
04:45
Troponin I 0.329 H*
Vital Signs and I&O:
Vital Signs
Temp Pulse Resp BP Pulse Ox
98.2 F 92 16 109/61 100
09/21/23 07:40 09/21/23 09:15 09/21/23 07:40 09/21/23 09:15 09/21/23 07:40
Vital Signs
Temp Pulse Resp BP Pulse Ox
98.2 F 92 16 109/61 100
09/21/23 07:40 09/21/23 09:15 09/21/23 07:40 09/21/23 09:15 09/21/23 07:40
Intake & Output
09/19/23 09/20/23 09/21/23 09/22/23
06:59 06:59 06:59 06:59
Intake Total 1680 / 1680
Output Total 2049 800 / 800
Balance -2049 / -2049 880 / 880
Physical Exam
Physical Exam
GEN: No distress, awake, Ox3; sitting up in bed
HEENT: supple, anicteric, mmm
LUNGS: Mild crackles bilateral bases, improved, no wheezes/rales; wearing 2 L of oxygen via nasal cannula
CV: Reg, S1/S2, 2/6 harsh radiating systolic murmur, no rub or gallop
ABD: soft, BS+, NT/ND
EXT: No lower extremity edema
NEURO: Gross non-focal
SKIN: No rash, warm, dry, pink
--- NOTE | 2023-09-21 13:38 | W.PN.HOSP.TC ---
Today's Communication/Plan
-
Monitor vital signs and see plan
Cardiology to decide regarding ischemic evaluation
Continue with diuresis
On Eliquis and Plavix
Monitor renal function
Wean oxygen as tolerated
Assessment / Plan
Assessment / Plan
General: Well Developed, Well Nourished, No Apparent Distress and Comfortable
HEENT: NormoCephalic, Anicteric and Moist mucous membranes
Respiratory: Rales
Cardiac: S1/S2 and Regular Rhythm
GI: Soft, Non Tender and Non Distended
Musculoskeletal: No Edema
Skin: Warm and Dry
Neuro: AO x 3
Psych: Calm
Acute hypoxic respiratory failure -due to acute pulmonary edema due to acute heart failure exacerbation and PNA. Placed on BiPAP in the emergency room. now on 2 L, wean oxygen as tolerated
Continue with diuresis
Check echo 09/19 with EF 50%; new wallmotion abnormality. Cardiology is awaiting callback from patient's primary backrest assembler regarding ischemic evaluation
Records requested
Acute on chronic heart failure with preserved EF exacerbation -presentation with acute pulmonary edema. Chest x-ray reviewed. BNP 5330. Continue IV Lasix. Cardiology following
Chest x-ray noted with possible diffuse interstitial pneumonia
Pro-Joel positive, start cef and doxy
Legionella, strep neg
Troponin elevation, unclear etiology if it is nonischemic myocardial injury or acute coronary syndrome
Cardiology at this time wanted to manage medically. On Eliquis, Plavix
trop peaked 0.7
CAD -with prior LAD stent in June 2022, [facility]. Troponin this morning negative, will trend. EKG shows atrial sensed ventricular paced rhythm. No previous EKGs available. Continue Plavix.
Essential hypertension with hypertensive emergency -continue metoprolol, losartan. Anticipate blood pressure improvement with diuresis.
Paroxysmal atrial fibrillation - continue Eliquis, amiodarone.
Hyperlipidemia -on simvastatin.
History of stroke
Hypothyroidism -continue levothyroxine.
Permanent pacemaker
Osteoporosis
Limited DNR -no intubation, she is okay with CPR.
Anticipated Discharge: 24 - 48 hours
Subjective/Interval History
-
Date of Service: September 21, 2023
denies pain
Objective Data
-
Labs:
Laboratory Results
09/21/23
05:04
WBC 10.6
Hgb 9.4 L
Hct 31.3 L
Plt Count 342
Sodium 140
Potassium 4.3
Chloride 102
Carbon Dioxide 34 H
BUN 36 H
Creatinine 1.2 H
Glucose 87
Calcium 9.1
Vital Signs:
Vital Signs
Temp Pulse Resp BP Pulse Ox
98.0 F 90 16 97/47 94
09/21/23 12:10 09/21/23 12:10 09/21/23 12:10 09/21/23 12:10 09/21/23 12:10
I&O
09/20/23 09/21/23 09/22/23
06:59 06:59 06:59
Intake Total 1679 / 0
Output Total 2049 800 / 800 250 / 250
Balance -2049 -2049 880 / 880 -250 / -250
[2023-09-21] MEDS: STERILE WATER FOR INJECTION 10 ML IV (16:25)
[2023-09-21] MEDS: ROCEPHIN 1000 MG IV (16:26)
--- NOTE | 2023-09-21 17:27 | W.PN.UPDATE ---
Update Note
Progress Note Update
Dr. Reyes never returned my call. Patient aware of this. She wants to discuss with daughter this evening. For now will hold Elijaisonis and keep NPO 09/22/2023
[2023-09-21] MEDS: TYLENOL 650 MG PO (19:24)
--- NOTE | 2023-09-21 21:59 | PTCARENOTE ---
received patient at the change of shift. AAOx3. resting in bed with her daughter at the bedside. patient c/o mild back pain-Tylenol given, see mar. mild DELCID per patient. denies cp. SR with some paced adhmt-25p-16m. bp stable. sp02 on room air
88-91%. shallow breathing. placed patient on 2L. oob independently with a walker to the bedside commode. educated patient to inform Rn with any changes. call rosas within reach.
patient discussed plan of care with daughter, Guerline. they have decided to continue with cardiac cath. Guerline would like to be called in the morning prior to cardiac cath. will pass on to day shift.
--- NOTE | 2023-09-22 03:10 | DOWNTIME ---
There was a [employer] Client Apple Peeler Operator Downtime on 09/22/2023 from 0100 to 09/22/2023 at 0255. Downtime documentation of patient's care, including medication administrations, has been reconciled in the electronic record per guidelines. Refer to the
patient's paper chart under the miscellaneous tab to see printed paper medication records and downtime forms.
[2023-09-22 05:41] VITALS: BP 159/56
[2023-09-22] MEDS: SYNTHROID 100 MCG PO (05:41)
[2023-09-22 06:26] LABS: Blood Urea Nitrogen 42 mg/dl (7-17); Calcium 9.4 mg/dl (8.4-10.2); Carbon Dioxide 31 mmol/L (22-30); Chloride 101 mmol/L (98-107); Estimated Creatinine Clearance 31 ml/min; Glucose 84 mg/dl (70-99); Potassium 4.1 mmol/L (3.5-5.1); Sodium 140 mmol/L (135-145); eGFR 41.57
[2023-09-22 06:39] LABS: % Basophils 0.7 % (0-2); % Eosinophils 1.5 % (0-6); % Immature Granulocytes 0.4 % (0-0.5); % Monocytes 9.3 % (1.7-9.3); % Neutrophils 71.1 % (42.2-75.2); Absolute Basophils 0.1 10^3/uL (0-0.2); Absolute Eosinophils 0.2 10^3/uL (0-0.7); Absolute Lymphocytes 1.7 10^3/uL (1.2-3.4); Absolute Monocytes 0.9 10^3/uL (0.1-0.6); Absolute Neutrophils 7.2 10^3/uL (1.4-6.5); Hematocrit 29.9 % (37.0-47.0); Hemoglobin 9.2 g/dL (12.0-16.0); Mean Corp Hgb Conc. 30.8 g/dL (33.0-37.0); Mean Corpuscular Hgb 24.9 pg (27.0-31.0); Mean Corpuscular Volume 80.8 fL (81.0-99.0); Mean Platelet Volume 9.9 fL (7.4-10.4); Nucleated Red Blood Cells % 0 %; Platelet Count 333 10^3/uL (130-400); Red Cell Dist. Width 15.7 % (11.5-14.5); White Blood Cell Count 10.1 10^3/uL (4.8-10.8)
--- NOTE | 2023-09-22 07:00 | PTCARENOTE ---
report received from previous RN. pt AAOX3, denies pain. AV paced on telemetry heart rate 60s. pulses palpable. no edema. pt on 2L nasal cannula, sat 100%. lung sounds diminished in bases. currently NPO for possible cath. active bowel sounds.
voiding in commode. pt updated on plan of care. ROSALINE hinton stated to hold am dose of lasix at this time, cr 1.3.
[2023-09-22 07:04] VITALS: BP 159/67
[2023-09-22] MEDS: COZAAR 50 MG PO (08:23)
[2023-09-22] MEDS: TOPROL XL 25 MG PO (08:23)
[2023-09-22] MEDS: VIBRAMYCIN 100 MG PO ×2 (08:23→19:55)
[2023-09-22] MEDS: PACERONE 200 MG PO (08:23)
[2023-09-22] MEDS: PLAVIX 75 MG PO (08:23)
[2023-09-22] MEDS: VISBIOME 1 CAP PO (08:23)
--- NOTE | 2023-09-22 08:26 | W.PN.CARDCBS ---
Addendum entered and electronically signed by Meliton Epstein DO 09/22/23 10:39:
I saw and examined the patient.
The Vice President Biostatistics's note was reviewed and I agree with the note.
Comment:
Plan:
Plan for cath tomorrow to eval coronary anatomy in setting of trop, drop in EF and wall motion changes.
Hold lasix in anticipation of cath as cr has increase
Hold Eliquis in anticipation of cath
Patient's primary evaporative cooler installer office was called to give update and discuss as per family request.
Pt symptomatically improving.
Original Note:
Today's Communication / Plan
-
Hold Lasix IV and switch to PO tomorrow
Start atorvastatin
Eliquis on hold for possible cath tomorrow
53 minutes in face to face time, calling daughter, calling Dr. Reyes's office at family's request
Impression / Plan
-
PCP: Dr. Elissa Franks
Outpatient evaporative cooler installer: Dr. Elijah Reyes
Impression::
Presented 09/19/2023 with progressively worsening shortness of breath
Acute pulmonary edema
Acute HFpEF
Elevated Troponin, peaked at 0.722
CAD s/p 2.75 mm Xience to prox LAD at [facility] 06/2022
Sick sinus syndrome/tachybradycardia syndrome 06/2022
Biotronik permanent pacemaker
HTN
Paroxysmal AF
Chronic Eliquis OAC
h/o CVA
Hyperlipidemia
Kyphosis
Hysterectomy
EVON
Cardiac catheterization June 2022 ([facility]): Conclusion severe single-vessel CAD with 80 to 90% proximal LAD status post 2.75 x 23 mm Xience LAVON, moderate stenosis in proximal RPL and D1 branches. Normal right and left filling pressures. Preserved
cardiac output and index
Echo 09/03/2022 ([facility]): EF 60 to 65% grade 1 DD. Mild MR. Mild with peak/mean gradient 18/11 mmHg with MUNIRA 1.3 cm�. Trivial pericardial effusion 0.7 cm
Echo 09/20/2023: EF 50 to 55% with lateral wall hypokinesis, possible anterior wall hypokinesis, mild concentric LVH, stage II DD. Mild to mod MR, mod aortic stenosis peak/mean 34/22 mmHg with MUNIRA 0.7 cm�, mild AI. Mild TR, PAP 39 mmHg
Plan:
-No chest pain since admission. Troponin peaked at 0.72. Echo with EF at 50-55% after previously being closer to 60-65% and also with new lateral wall hypokinesis and possible anterior wall hypokinesis. ECG is paced. Patient had cath at [facility] 06/2022
and had LAD PCI at that time. Patient was recommended cardiac cath 09/21/23 and Eliquis 5 mg BID placed on hold starting 09/21/23 PM. Called and talked with patient's daughter, Guerline, using my phone and the speakerphone function so that patient could
be involved in the conversation as well. Reviewed all of the above and patient's daughter says that they talked with Dr. Reyes 09/21/23 and that he told them he agreed with cath, but Guerline is now asking that I also talk with Dr. Reyes myself to be sure
he understands all of the facts of the case and to be sure he agrees with cath and then I should let family know what Dr. Reyes says to me. If all are in agreement then patient will proceed to cath.
-Called Dr. Reyes's office 09/22/23 AM and talked to Yuli, she is going to relay the message to Dr. Reyes. Provided my cell # and Dr. Epstein's cell # for a call back.
-Weight is down 4 lbs with Lasix 40 mg IV BID diuresis. Dry weight unknown. Patient was taking Lasix 20 mg PO daily prior to admission.
-Cre up to 1.3 on 09/22/23, will hold Lasix IV and restart Lasix 40 mg PO daily on 09/23/23. Repeat BMP in AM ordered.
-BP 159/67 prior to morning meds 09/22/23. Outpatient dose of losartan 50 mg daily has been continued, but will hold 09/23/23 AM until labs resulted.
-Outpatient dose of Toprol XL 25 mg daily continued.
- is moderate with mean gradient 22 mmHg and MUNIRA 0.7 cm sq which is up compared to echo at [facility] 09/03/22 when mean gradient was 11 and MUNIRA 1.3 cm sq. Patient will follow up with her outpatient evaporative cooler installer for this. Records being sent to primary
evaporative cooler installer on 09/22/23
-LDL 86 on outpatient dose of simvastatin 20 mg daily. Changed to atorvastatin 40 mg daily on 09/22/23
-Patient was taking Eliquis 5 mg BID (age 82, wt. 72 kg and Cre 1.3). If Cre rises above 1.5 then should reduce dose to 2.5 mg BID
-Biotronik PPM in place.
[facility] 09/19/2023: 82-year-old female with past medical history of coronary artery disease/PCI/IN, permanent pacemaker, chronic heart failure with unknown EF, hypertension, paroxysmal atrial fibrillation, CVA, stroke, and osteoporosis presents to
[facility] from [facility] with an episode of sudden shortness of breath and respiratory distress. She states she was in her usual state of health had dinner at [facility] when suddenly had an episode of severe shortness of breath,
orthopnea was unable to breathe. She denied any overt chest pains. She was called and she was brought to the [place] emergency room where she was found to be in respiratory distress requiring BiPAP, high. Nitroglycerin, and morphine. She was
treated with IV Lasix where she clinically improved. She states that she had an episode of congestive heart failure in December 2022. She also had a pacemaker placed in the setting of a PCI in June 2022. Her family states she has other
significant coronary artery disease. She currently feels well with no palpitations, dizziness, or dyspnea.
Progress Note - Sales Appointment Coordinator
Subjective
Date of Service: September 22, 2023
She denies chest pain
Objective
Labs:
09/22/23 05:42
07/17/24 05:42
Labs
Hgb 9.2 g/dL (12.0-16.0) L 09/22/23 05:42
Hct 29.9 % (37.0-47.0) L 09/22/23 05:42
Plt Count 333 10^3/uL (130-400) 09/22/23 05:42
PT 16.5 Sec (11.4-14.6) H 09/19/23 07:32
INR 1.35 09/19/23 07:32
Sodium 140 mmol/L (135-145) 09/22/23 05:42
Potassium 4.1 mmol/L (3.5-5.1) 09/22/23 05:42
BUN 42 mg/dl (7-17) H 09/22/23 05:42
Creatinine 1.3 mg/dL (0.6-1.0) H 09/22/23 05:42
Glucose 84 mg/dl (70-99) 09/22/23 05:42
Troponins
09/19/23 09/19/23 09/20/23
13:32 19:47 04:45
Troponin I 0.485 H* D 0.722 H* D 0.329 H*
Vital Signs and I&O:
Vital Signs
Temp Pulse Resp BP Pulse Ox
97.8 F 60 18 159/67 100
09/22/23 07:01 09/22/23 08:23 09/22/23 07:01 09/22/23 08:23 09/22/23 07:01
Vital Signs
Temp Pulse Resp BP Pulse Ox
97.8 F 60 18 159/67 100
09/22/23 07:01 09/22/23 08:23 09/22/23 07:01 09/22/23 08:23 09/22/23 07:01
Intake & Output
09/20/23 09/21/23 09/22/23 09/23/23
06:59 06:59 06:59 06:59
Intake Total 1679 / 1679
Output Total 2049 800 / 800 550 / 550
Balance -2049 -2049 880 / 880 -550 / -550
Physical Exam
Physical Exam
GEN: NAD. AAO x3
HEENT: mmm
LUNGS: No audible wheeze
CV: Paced on tele
ABD: ND
EXT: No edema B/L
NEURO: Gross non-focal
SKIN: No rash.
--- NOTE | 2023-09-22 10:00 | PTCARENOTE ---
per PA no cardiac cath today, diet ordered, pt ordered breakfast. plan for cath tomorrow, NPO after midnight.
[2023-09-22] MEDS: LASIX IV (10:24)
--- NOTE | 2023-09-22 12:30 | W.PN.HOSP.TC ---
Today's Communication/Plan
-
Monitor vital signs see plan
Holding Lasix, Eliquis for possible catheterization tomorrow
Wean oxygen as tolerated
Monitor renal function
Assessment / Plan
Assessment / Plan
General: Well Developed, Well Nourished, No Apparent Distress and Comfortable
HEENT: NormoCephalic, Anicteric and Moist mucous membranes
Respiratory: Rales
Cardiac: S1/S2 and Regular Rhythm
GI: Soft, Non Tender and Non Distended
Musculoskeletal: No Edema
Skin: Warm and Dry
Neuro: AO x 3
Psych: Calm
Acute hypoxic respiratory failure -due to acute pulmonary edema due to acute heart failure exacerbation and PNA. Placed on BiPAP in the emergency room. now on 2 L, wean oxygen as tolerated
Continue with diuresis
Check echo 09/19 with EF 50%; new wallmotion abnormality. Cardiology is awaiting callback from patient's primary intermediate card tender regarding ischemic evaluation. Tentatively Planned for 09/22. Holding Eliquis, Lasix
Acute on chronic heart failure with preserved EF exacerbation -presentation with acute pulmonary edema. Chest x-ray reviewed. BNP 5330. Continue IV Lasix. Cardiology following
Chest x-ray noted with possible diffuse interstitial pneumonia
Pro-Joel positive, cw cef and doxy
Legionella, strep neg
Troponin elevation, unclear etiology if it is nonischemic myocardial injury or acute coronary syndrome
Cardiology at this time wanted to manage medically. On Eliquis, Plavix at home
trop peaked 0.7
CAD -with prior LAD stent in June 2022, [facility]. Troponin this morning negative, will trend. EKG shows atrial sensed ventricular paced rhythm. No previous EKGs available. Continue Plavix.
Essential hypertension with hypertensive emergency -continue metoprolol, losartan. Anticipate blood pressure improvement with diuresis.
Paroxysmal atrial fibrillation - continue Eliquis, amiodarone.
Hyperlipidemia -on simvastatin.
History of stroke
Hypothyroidism -continue levothyroxine.
Permanent pacemaker
Osteoporosis
Limited DNR -no intubation, she is okay with CPR.
Anticipated Discharge: 24 - 48 hours
Subjective/Interval History
-
Date of Service: September 22, 2023
denies pain
Objective Data
-
Labs:
Laboratory Results
09/22/23
05:42
WBC 10.1
Hgb 9.2 L
Hct 29.9 L
Plt Count 333
Sodium 140
Potassium 4.1
Chloride 101
Carbon Dioxide 31 H
BUN 42 H
Creatinine 1.3 H
Glucose 84
Calcium 9.4
Vital Signs:
Vital Signs
Temp Pulse Resp BP Pulse Ox
97.8 F 60 18 159/67 100
09/22/23 07:01 09/22/23 12:00 09/22/23 07:01 09/22/23 08:23 09/22/23 07:01
I&O
09/21/23 09/22/23 09/23/23
06:59 06:59 06:59
Intake Total 1680 / 1680
Output Total 800 / 800 550 / 550
Balance 880 / 880 -550 / -550
--- NOTE | 2023-09-22 13:14 | CM ---
Reviewed chart. Met with Mrs. Linn and her son to review discharge plans. She states she is going for a Cardiac cath tomorrow. We reviewed VNA Services and she is agreeable to VNA Services with [facility]. Telephone call to [facility]
Intake to make the referral. Sent the referral. Prior to admission she resides alone in an apartment at [facility]. She has been there for three years. Prior to admission she uses a rolling walker in the apartment and short
distances. She uses an electric wheelchair for longer distances. She has a cleaning lady. She has had [facility] in the past. Medical work-up in progress. The discharge plan is to return to her apartment and [facility] Services when
medically stable.
--- NOTE | 2023-09-22 14:48 | W.PN.UPDATE ---
Update Note
Progress Note Update
Got a call back from Dr. Reyes this morning around 1100 and reviewed case, he has no opposition to cath and relayed that he talked to patient's family separately yesterday. Called patient's daughter, Guerline, at [phone] and left a message telling
her I talked to Dr. Reyes and that cath would be tomorrow.
[2023-09-22 14:55] VITALS: BP 123/40
[2023-09-22] MEDS: ROCEPHIN 1000 MG IV (15:36)
[2023-09-22] MEDS: STERILE WATER FOR INJECTION 10 ML IV (15:36)
[2023-09-22 15:58] VITALS: BP 131/46
[2023-09-22] MEDS: LIPITOR 40 MG PO (17:01)
[2023-09-22 19:27] VITALS: BP 142/94
[2023-09-22 23:02] VITALS: BP 152/58
[2023-09-23] VITALS (16 sets, daily range): BP systolic 112–155; BP diastolic 39–94; PULSE 60; O2SAT 100; BMI 30.3
[2023-09-23] MEDS: SYNTHROID 100 MCG PO (04:33)
[2023-09-23 04:48] LABS: % Basophils 0.5 % (0-2); % Eosinophils 1.5 % (0-6); % Immature Granulocytes 0.3 % (0-0.5); % Lymphocytes 15.5 % (20.5-51.1); % Monocytes 9.8 % (1.7-9.3); % Neutrophils 72.4 % (42.2-75.2); Absolute Basophils 0.1 10^3/uL (0-0.2); Absolute Eosinophils 0.2 10^3/uL (0-0.7); Absolute Lymphocytes 1.5 10^3/uL (1.2-3.4); Absolute Neutrophils 7.1 10^3/uL (1.4-6.5); Hematocrit 31.4 % (37.0-47.0); Hemoglobin 9.5 g/dL (12.0-16.0); Mean Corp Hgb Conc. 30.3 g/dL (33.0-37.0); Mean Corpuscular Hgb 25.1 pg (27.0-31.0); Mean Corpuscular Volume 82.8 fL (81.0-99.0); Mean Platelet Volume 9.7 fL (7.4-10.4); Nucleated Red Blood Cells % 0 %; Platelet Count 331 10^3/uL (130-400); Red Blood Cell Count 3.79 10^6/uL (4.20-5.40); Red Cell Dist. Width 15.5 % (11.5-14.5); White Blood Cell Count 9.9 10^3/uL (4.8-10.8)
--- NOTE | 2023-09-23 04:54 | PTCARENOTE ---
Patient ringing appropriately for assistance overnight. AO x3, pale, the dorsal aspect of left foot bruised, she hit foot on something at home while using her electric wheelchair at home. NSR, occasional AV pacing. Using bedside commode voiding
yellow urine. Large obese soft abdomen. Oxygen at 2 liters NC, 89% on room air, 100% on 2 liters, crackles right base. Call rosas in reach
[2023-09-23 05:09] LABS: Blood Urea Nitrogen 35 mg/dl (7-17); Calcium 9.3 mg/dl (8.4-10.2); Carbon Dioxide 28 mmol/L (22-30); Chloride 104 mmol/L (98-107); Estimated Creatinine Clearance 45 ml/min; Glucose 100 mg/dl (70-99); Potassium 4.2 mmol/L (3.5-5.1); Sodium 139 mmol/L (135-145); eGFR > 60.00
--- NOTE | 2023-09-23 07:19 | PTCARENOTE ---
Pt taken to Home Stereo Equipment Installer, family waiting in room.
[2023-09-23 08:26] LABS: ACT-LR - POC 247 Seconds (116-155)
[2023-09-23 08:36] LABS: ACT-LR - POC 331 Seconds (116-155)
[2023-09-23] MEDS: NSS 1000 IV (09:34)
--- NOTE | 2023-09-23 10:05 | CONSULT.CT ---
Consultation
-
Date/Time Consultation Requested: 09/22
Date/Time Consultation Performed: 09/22
Requesting Provider: Roberto Dubose
Performing Provider: Lisbet Sood for Dr. Kiel Rivera
Reason for Consultation: CABG evaluation
Patient History
Physicians
Family Physician: Elissa Franks
Outpatient Preschool Associate Teacher: Elijah Reyes
Inpatient Preschool Associate Teacher: Roberto Dubose
History of Present Illness
Loida Linn is an 82-year-old female followed by Dr. Elijah Reyes for known coronary disease and LAD stent from June 2022. Patient was in usual state of health until when she experienced acute onset of shortness of breath after
dinner. Patient waited until morning to seek medical attention as she thought symptoms would resolve. Patient presented to [place] emergency room on 09/20/2023 via EMS from her assisted living community at [facility] for acute respiratory
distress (pulse ox 30%). Pulse oximeter improved to 95% with BiPAP, morphine, nitroglycerin, and Lasix. Peak troponin 0.72 and pro BNP 5340. Patient record indicates one hospitalization for heart failure in December 2022 due to hypertensive
urgency. Patient's last dose of Eliquis (for chronic A-fib) was 09/20 and last Plavix dose (for recent LAVON�LAD) was 09/21. CT surgery was consulted to assess surgical candidacy for CABG.
TTE 09/20/23:
LVEF 50-55% with lateral wall hypokinesis and stage II diastolic dysfunction. There is mild�moderate mitral regurgitation with dense mitral annular calcification. Moderate aortic stenosis with AV gradients of 34/20 mmHg, MUNIRA 0.7 cm�, LVOT 1.6 cm,
mild aortic insufficiency and mild tricuspid regurgitation
Cardiac Cath (Dr. Dubose) 09/23/2023:
LEFT MAIN: ok
LEFT ANTERIOR DESCENDING: Diffuse 50% stenosis in the proximal-mid LAD spanning across the prior stent placed in 2022. IFR abnormal at 0.82. Proximal 70 to 80% stenosis D1. Ostial-proximal 80% stenosis D2
CIRCUMFLEX: Mild to moderate diffuse atherosclerotic plaque
RIGHT CORONARY ARTERY: 50% proximally, 60-70% mid, and 70 to 75% in the distal RCA. RPDA has 2 serial 70% stenoses and RPL has a long tubular 80% stenoses
Past Medical History
Past Medical History: Arrhythmias (tachy-vineet s/p Biotronik dual chamber PPM 06/2022), Atrial Fib (on Eliquis), CAD (s/p LAVON-LAD (06/2022)), CHF (HFpEF), CVA/TIA (TIA 3 years ago-does not recall symptoms), HTN, Hypercholesterolemia, Hypothyroidism,
MA (3 years ago), Valvular Disease (moderate aortic stenosis and mild-moderate mitral regurgitation) and Other (chronic back pain s/p fall several years ago; Obesity (BMI 30))
Past Surgical History
Past Surgical History: Hysterectomy (JUAN d/t uterine fibroids), PCI/Stent (LAVON-LAD 06/2023) and Other (Biotronik dual chamber PPM 06/2023)
Family History
Mother: at Age
Father: at Age
Social History
Alcohol: None
Drug: None
Tobacco: Non-Smoker
Personal: ( 2 years ago s/p redo AVR/CABG)
Living: Assisted Living ([facility])
Allergies
Allergy/AdvReac Type Severity Reaction Status Date / Time
No Known Allergies Allergy Verified 06/14/22 14:15
Home Medications
�Medication �Instructions �Recorded �Confirmed �Type
alendronate 70 mg tablet 70 mg PO MO BONE 06/14/22 09/19/23 History
levothyroxine 100 mcg tablet 100 mcg PO DAILY Thyroid 06/14/22 09/19/23 History
multivitamin 1 tab PO DAILY Supplement 06/14/22 09/19/23 History
simvastatin 20 mg tablet 20 mg PO HS High Cholesterol 06/14/22 09/19/23 History
trazodone 50 mg tablet 50 mg PO HS sleep 06/14/22 09/19/23 History
apixaban 5 mg tablet (Eliquis) 5 mg PO BID Blood Clot 09/19/23 09/19/23 History
Prevention/Tx
calcium carbonate (Calcium 600) 600 mg PO DAILY Supplement 09/19/23 09/19/23 History
clopidogrel 75 mg tablet (Plavix) 75 mg PO DAILY Blood Clot 09/19/23 09/19/23 History
Prevention/Tx
furosemide 20 mg tablet (Lasix) 20 mg PO DAILY Fluid 09/19/23 09/19/23 History
Retention/Swelling
losartan 50 mg tablet 50 mg PO DAILY Blood Pressure 09/19/23 09/19/23 History
metoprolol succinate 25 mg 25 mg PO DAILY Blood Pressure 09/19/23 09/19/23 History
tablet,extended release 24 hr
(Toprol XL)
sennosides 8.6 mg tablet (senna) 8.6 mg PO HS Constipation 09/19/23 09/19/23 History
trazodone 50 mg tablet 25 mg PO HS PRN f no asleep from 09/19/23 09/19/23 History
1st dose and wakes up at 2am
Review of Systems
-
History Source: Patient and Family
General: Reports Weight Loss (20 pound weight loss in past 6 months d/t dietary changes (Low sodium))
HEENT: Reports No Symptoms
Respiratory: Reports SOB (on admission)
Cardiac: Reports No Symptoms and CAD
Abdomen/GI: Reports No Symptoms and Other (denies dysphagia)
: Reports No Symptoms
Musculoskeletal: Reports Myalgias, Arthralgias and Other (hx chronic backpain from fall -uses wheelchair and scooter for distance)
Skin: Reports No Symptoms
Neurological: Reports TIA
Vascular: Reports No Symptoms
Physical Exam
Vital Signs
Temp 98.4 F 09/23/23 06:32
Temp route: Oral 09/23/23 06:32
Pulse 96 09/23/23 06:34
Rhythm: Normal sinus rhythm 09/22/23 20:00
With- A-V paced atrial/ventric 09/22/23 20:00
Resp Rate 18 09/23/23 06:32
Blood pressure 143/57 09/23/23 06:34
Blood pressure extremity used: Left upper arm 09/23/23 06:32
Position: Lying 09/23/23 06:32
MAP (cuff-Erasmo Monitor) 82 09/23/23 06:34
MAP 83 09/20/23 07:45
SaO2 100 09/23/23 06:34
Nasal Cannula flow liters per minute 2 09/23/23 06:32
Oxygen Mode of Delivery Room air 09/22/23 23:02
Flow liters per minute # 15 09/19/23 07:22
Pulse Ox at Rest 92 09/21/23 15:41
Can the patient verbally communicate their pain? Yes 09/22/23 08:00
Pain scale ratin 09/21/23 20:24
Actual Weight 72.7 kg 09/23/23 01:26
Body Mass Index (BMI) 30.3 09/23/23 01:26
Supine- Blood Pressure 119/70 09/21/23 15:41
Supine- Pulse 97 09/21/23 15:41
Oxygen Saturation with Activity 95 09/21/23 15:41
Labs
09/23/23 04:28
09/23/23 04:28
PT 16.5 Sec (11.4-14.6) H 09/19/23 07:32
Troponin I 0.329 ng/ml H* 09/20/23 04:45
Pns-D-Agsgdmvilwz Pept 5350 pg/ml 09/19/23 07:32
Exam
General: Well Developed, Well Nourished and No Apparent Distress
HEENT: Normocephalic and Moist Mucous Membranes
Neck: Carotid Bruit (B/L ) and Trachea Midline
Respiratory: Clear
Cardiac: S1/S2, Irregular Rhythm and Murmur (III/ RSB 2nd ICS>radiates throughout precordium)
GI: Soft, Non Tender and Other (obese)
Rectal: Deferred by Provider
Skin: Warm and Dry
Neuro: AO x 3, No Motor Deficits and Nonfocal/Grossly Intact
Extremities: Pulses (+1/4 B/L, no varicosities)
Lymph: No Lymphadenopathy
Psych: Calm
Assessment / Plan
-
82 year old female with triple vessel CAD with recent drug-eluting stent to LAD (06/28), moderate aortic stenosis, and preserved EF (50-55%)
- DR. Rivera met with patient and family to discuss surgical procedure and risk/benefit ratio
- patient/family interested in exploring pre-op diagnostics as part of risk/benefit evaluation
Data Reviewed
-
EKG: Report Reviewed by me and Discussed with Physician
Show Operations Supervisor: Report Reviewed by me and Discussed with Physician
Echo: Report Reviewed by me and Discussed with Physician
Radiology: Report Reviewed by me and Discussed with Physician
Labs: Labs Reviewed by me and Discussed with Physician
[2023-09-23] MEDS: PACERONE 200 MG PO (10:08)
[2023-09-23] MEDS: PLAVIX 75 MG PO (10:09)
[2023-09-23] MEDS: VIBRAMYCIN 100 MG PO ×2 (10:09→20:13)
[2023-09-23] MEDS: VISBIOME 1 CAP PO (10:09)
[2023-09-23] MEDS: TOPROL XL 25 MG PO ×2 (10:13→20:14)
--- NOTE | 2023-09-23 10:30 | PTCARENOTE ---
Pt received from optical lab technician at 9:05. Left radial band in place and intact. Left upper extremity is pink and warm. Left hand is cool, pulse ox 100%. Strong left radial pulse, used doppler due to difficulty to palpate with band location Pt reports no
pain. Pt instructed on bedrest and left limb restrictions.
--- NOTE | 2023-09-23 10:36 | ITS.CL.CATH ---
Computerized Mill Mill Recorder - Catheterization
Cardiac Catheterization
Procedure Report:
LEFT HEART CATHETERIZATION
Date of Procedure: September 23, 2023
Referring: Candace Ochoa.
PROCEDURES:
1. Left heart catheterization, coronary angiogram.
2. Ultrasound-guided access.
3. Physiologic functional testing using IFR of proximal to mid LAD
INDICATION: Ms. Linn is a 82-year-old female, morbidly obese with past medical history of hypertension, hyperlipidemia, kyphosis, coronary artery disease status post proximal LAD PCI at [facility] in June 2022 with a 2.75 mm
Xience massimo point drug-eluting stent, sick sinus syndrome status post Biotronik permanent pacemaker, paroxysmal atrial fibrillation on chronic Eliquis, last dose on September 20, prior stroke with no residual deficits, who presented with progressively
worsening shortness of breath found to have a NSTEMI with a troponin elevation of 0.722, new low normal LVEF on echocardiogram with new wall motion abnormalities and clinical concern for acute decompensated heart failure with preserved LVEF and was
now referred for left heart catheterization to rule out obstructive CAD. Of note, patient was found to have a EVON this admission with creatinine 1.0 on admission which increased to 1.3 and has now normalized to 0.9 prior to catheterization.
ACCESS:
1. Left radial artery, 6 fr sheath, under ultrasound guidance
HEMODYNAMICS : (mmHg)
AO (s/d) : 140/79
LV (s/d) : 156/13
LVEDP : 18
CORONARY FINDINGS
DOMINANCE: Right
LEFT MAIN: The left renal artery is a large-caliber vessel which gives rise to the left anterior descending artery and the left circumflex artery. There is mild diffuse atherosclerotic plaque.
LEFT ANTERIOR DESCENDING: The left anterior descending artery is a medium to large caliber vessel which gives rise to 2 major diagonal branches which are both medium caliber as it courses through the anterior interventricular groove and wraps around
the apex. There is diffuse 50% stenosis in the proximal to mid LAD spanning across the prior stent placed in 2022. This lesion was further assessed using physiologic functional testing with IFR and was abnormal at 0.82. D1 has a tubular proximal
70 to 80% stenosis. D2 has ostial to proximal 80% stenosis.
CIRCUMFLEX: The left circumflex artery is a small to medium caliber, nondominant vessel which gives rise to 1 major obtuse marginal branch. There is mild to moderate diffuse atherosclerotic plaque.
RIGHT CORONARY ARTERY: The right coronary artery is a large-caliber, dominant vessel gives rise to the right posterior descending artery and the right posterolateral system. There are 3 serial stenoses in the body of the RCA, 50% proximally, 60 to
70% in the second lesion and 70 to 75% in the distal RCA with otherwise mild to moderate diffuse atherosclerotic plaque in the RCA. RPDA has 2 serial 70% stenoses and right posterolateral branch has a long tubular 80% stenoses that extends into the
lower branch of the RPL system.
HEMODYNAMIC ASSESSMENT OF THE PROXIMAL TO MID LAD WITH A [place] OMNI WIRE: The origin of the left coronary was cannulated with a 5 Fr EBU 3.5 guide catheter. Intravenous heparin was administered and the ACT was followed during the procedure. Two
hundred micrograms of intracoronary nitroglycerin was given through the guide catheter. A [place] Omni wire was advanced to the guide catheter tip and normalized just outside guide catheter tip. The Omni wire was then carefully manipulated across
the stenosis in the proximal to mid LAD with the iFR below the ischemic threshold serially measuring 0.82, 0.82, 0.83. A slow pullback was performed with IFR normalizing in the the left main proximal to prior stents at 0.94. The Omni wire was then
pulled back to the guide catheter where the Pd/Pa measured 1.0 confirming no baseline drift in pressure readings.
SEDATION: 46 minutes of procedural sedation was utilized. An independent medical insurance claims specialist was present to assist with and help manage the patient's level of consciousness and physiologic status.
RADIATION SUMMARY: Fluoro Time (min): 9.0, Dose (mGy): 477.5 DAP (Gy.cm2) : 33.3
Closure Device: Vascular band over right radial artery, 17 cc of air
CONCLUSIONS
1. Multivessel coronary artery disease involving proximal to mid LAD, 2 diagonal branches and dominant RCA.
2. Elevated LVEDP at 18 mmHg.
RECOMMENDATIONS
1. Heart team discussion with CT surgery consult for consideration for coronary artery bypass grafting to LAD, D1/D2, RPDA/RPL.
2. Continue optimization of medical therapy in the interim.
3. Eventual referral for outpatient cardiac rehab.
Copy to: Candace Ochoa.
Shawna Dubose MD, FACC, [facility]
--- NOTE | 2023-09-23 14:16 | W.PN.HOSP.TC ---
Today's Communication/Plan
-
Monitor vital signs
see plan
Cardiac catheterization today
Wean oxygen as told
Assessment / Plan
Assessment / Plan
General: Well Developed, Well Nourished, No Apparent Distress and Comfortable
HEENT: NormoCephalic, Anicteric and Moist mucous membranes
Respiratory: Rales
Cardiac: S1/S2 and Regular Rhythm
GI: Soft, Non Tender and Non Distended
Musculoskeletal: No Edema
Skin: Warm and Dry
Neuro: AO x 3
Psych: Calm
Acute hypoxic respiratory failure -due to acute pulmonary edema due to acute heart failure exacerbation and PNA. Placed on BiPAP in the emergency room. now on 2 L, wean oxygen as tolerated
Continue with diuresis
Check echo 09/19 with EF 50%; new wallmotion abnormality. cath 09/22. Holding Eliquis, Lasix
Acute on chronic heart failure with preserved EF exacerbation -presentation with acute pulmonary edema. Chest x-ray reviewed. BNP 5330. Continue IV Lasix. Cardiology following
Chest x-ray noted with possible diffuse interstitial pneumonia
Pro-Joel positive, cw cef and doxy
Legionella, strep neg
Troponin elevation, unclear etiology if it is nonischemic myocardial injury or acute coronary syndrome
Cardiology at this time wanted to manage medically. On Eliquis, Plavix at home
trop peaked 0.7
CAD -with prior LAD stent in June 2022, [facility]. Troponin this morning negative, will trend. EKG shows atrial sensed ventricular paced rhythm. No previous EKGs available. Continue Plavix.
Essential hypertension with hypertensive emergency -continue metoprolol, losartan. Anticipate blood pressure improvement with diuresis.
Paroxysmal atrial fibrillation - continue Eliquis, amiodarone.
Hyperlipidemia -on simvastatin.
History of stroke
Hypothyroidism -continue levothyroxine.
Permanent pacemaker
Osteoporosis
Limited DNR -no intubation, she is okay with CPR.
Anticipated Discharge: 24 - 48 hours
Subjective/Interval History
-
Date of Service: September 23, 2023
denies chest pain
Objective Data
-
Labs:
Laboratory Results
09/23/23
04:28
WBC 9.9
Hgb 9.5 L
Hct 31.4 L
Plt Count 331
Sodium 139
Potassium 4.2
Chloride 104
Carbon Dioxide 28
BUN 35 H
Creatinine 0.9
Glucose 100 H
Calcium 9.3
Vital Signs:
Vital Signs
Temp Pulse Resp BP Pulse Ox
97.9 F 60 20 124/43 100
09/23/23 12:12 09/23/23 12:00 09/23/23 11:02 09/23/23 12:00 09/23/23 12:00
I&O
09/22/23 09/23/23 09/24/23
06:59 06:59 06:59
Intake Total 300 / 300
Output Total 550 / 550 925 / 925 150 / 150
Balance -550 / -550 -925 / -925 150 / 150
--- NOTE | 2023-09-23 15:49 | PTCARENOTE ---
Pt sent for testing. Left wrist is ecchymotic but soft, radial pulse palpable.
[2023-09-23] MEDS: STERILE WATER FOR INJECTION 10 ML IV (17:21)
[2023-09-23] MEDS: ROCEPHIN 1000 MG IV (17:21)
[2023-09-23] MEDS: LIPITOR 40 MG PO (18:16)
[2023-09-23 18:46] LABS: Urine Albumin Trace (Neg - Trace); Urine Bilirubin Negative (Negative); Urine Character Clear (Clear); Urine Color Yellow; Urine Glucose Negative (Negative); Urine Ketone Negative (Negative); Urine Leukocyte Negative (Negative); Urine Nitrite Negative (Negative); Urine Occult Blood Negative (Negative); Urine Specific Gravity 1.015 (<1.030); Urine Urobilinogen Negative (Neg - 1+)
--- NOTE | 2023-09-23 19:50 | PTCARENOTE ---
Assumed care of patient at 1900, vs downloaded by me prior to that time were from previous shift.
[2023-09-23] MEDS: DESENEX/MITRAZOL/ZEASORB 1 APPLIC TOPICAL (20:13)
[2023-09-24] VITALS (8 sets, daily range): BP systolic 140–163; BP diastolic 31–87; PULSE 60; O2SAT 98
--- NOTE | 2023-09-24 01:10 | PTCARENOTE ---
Using BSC at to void. No complaints of pain at present but stated she is 'restless' and has alot to think about. SR in the 60's on the monitor.
[2023-09-24] MEDS: SYNTHROID 100 MCG PO (04:46)
[2023-09-24 05:29] LABS: HCO3 30.6 mmol/L (21-28); O2 Saturation % 94.5 % (94-98); PCO2 44 mmHg (32-35); PO2 70 mmHg (83-108); pH 7.45 (7.35-7.45)
[2023-09-24 05:42] LABS: APTT 36.8 Sec (23.4-35.0); INR 1.22; PT 15.5 Sec (11.4-14.6)
[2023-09-24 05:44] LABS: % Basophils 0.5 % (0-2); % Eosinophils 1.2 % (0-6); % Immature Granulocytes 0.3 % (0-0.5); % Lymphocytes 12.3 % (20.5-51.1); % Neutrophils 76.7 % (42.2-75.2); Absolute Basophils 0.1 10^3/uL (0-0.2); Absolute Eosinophils 0.1 10^3/uL (0-0.7); Absolute Lymphocytes 1.2 10^3/uL (1.2-3.4); Absolute Monocytes 0.9 10^3/uL (0.1-0.6); Absolute Neutrophils 7.6 10^3/uL (1.4-6.5); Hematocrit 29.9 % (37.0-47.0); Hemoglobin 9.2 g/dL (12.0-16.0); Mean Corp Hgb Conc. 30.8 g/dL (33.0-37.0); Mean Corpuscular Hgb 25.3 pg (27.0-31.0); Mean Corpuscular Volume 82.1 fL (81.0-99.0); Mean Platelet Volume 9.9 fL (7.4-10.4); Nucleated Red Blood Cells % 0 %; Platelet Count 338 10^3/uL (130-400); Red Blood Cell Count 3.64 10^6/uL (4.20-5.40); Red Cell Dist. Width 15.4 % (11.5-14.5); White Blood Cell Count 9.9 10^3/uL (4.8-10.8)
[2023-09-24 06:06] LABS: ALT (SGPT) 23 U/L (0-35); AST (SGOT) 38 U/L (14-36); Albumin 3.7 g/dl (3.5-5.0); Alkaline Phosphatase 81 U/L (38-126); Blood Urea Nitrogen 27 mg/dl (7-17); Calcium 9.4 mg/dl (8.4-10.2); Carbon Dioxide 29 mmol/L (22-30); Chloride 104 mmol/L (98-107); Estimated Creatinine Clearance 45 ml/min; Glucose 95 mg/dl (70-99); Potassium 3.8 mmol/L (3.5-5.1); Sodium 140 mmol/L (135-145); Total Bilirubin 0.5 mg/dl (0.2-1.3); Total Protein 6.2 g/dl (6.3-8.2); eGFR > 60.00
[2023-09-24 06:07] LABS: Direct Bilirubin 0.1 mg/dl (0.0-0.4)
[2023-09-24] MEDS: LOW STRENGTH ASPIRIN 81 MG PO (08:33)
[2023-09-24] MEDS: VISBIOME 1 CAP PO (08:33)
[2023-09-24] MEDS: VIBRAMYCIN 100 MG PO ×2 (08:33→20:34)
[2023-09-24] MEDS: PLAVIX 75 MG PO (08:34)
[2023-09-24] MEDS: PACERONE 200 MG PO (08:34)
[2023-09-24] MEDS: TOPROL XL 25 MG PO ×2 (08:34→20:33)
[2023-09-24] MEDS: DESENEX/MITRAZOL/ZEASORB 1 APPLIC TOPICAL ×2 (08:44→20:33)
--- NOTE | 2023-09-24 09:15 | W.PN.UPDATE ---
Update Note
Progress Note Update
Left ICA >70% stenosis. CT chest reviewed with Dr. Rivera. 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
--- NOTE | 2023-09-24 09:52 | W.PN.UPDATE ---
Update Note
Progress Note Update
CARDIAC SURGERY ATTENDING:
I had a long conversation at bedside w/ Mrs. Linn and her family yesterday. We discussed her pathology, the potential for cardiac surgery, and the need for preoperative work-up for risk stratification. Subsequently, we obtained a CT-C w/o
contrast, carotid U/S assessment, and PFTs. In reviewing the results of these investigations and her prior studies, coupled with the patients baseline functional status and additional comorbidities, she is at PROHIBITIVE RISK for cardiac surgical
intervention. I discussed her case w/ one of my surgical colleagues who concurred w/ this assessment. I shared my concerns with Mrs. Linn today at bedside, and also spoke with her daughter via telephone. I also shared my assessment w/ my
cardiology colleagues. In terms of her CAD and valvular heart disease, I will defer to the expertise of my cardiology colleagues with respect to the ideal management plan.
Thank you for the opportunity to participate in the care of this kind patient.
Please call with any questions or concerns.
Kiel Rivera M.D.
[phone]
REVIEW OF STUDIES:
CATH: LAD: diffuse 50% prox; iFR 0.82; D1: 70-80% prox; D2: 80% ostial/prox; LCx: [id number]-[id number] diffuse dz; RCA: 50%, 60-70%, and 70-75% stenoses from [id number]; RPDA: two 70% lesions; RPLB: 80%
ECHO: LVEF 50-55%, lateral hypokinesis, possible anterior hypokinesis, mild concentric LVH, dense MAC w/ ohvz-di-gduywdmi MR, thickened AV w/ moderate stenosis (P/M 34/20, MUNIRA 0.7) w/ mild AI, mild TR (PASP 39mmHg)
EKG: A-sensed, V-paced at 89
CAROTID U/S: <50% R ICA, >70% L ICA, antegrade vert
ABG/PFTs: 7.45/44/70/30.6/6.0/94.5; FVC: 0.96 (42%), FEV1: 0.63 (45%)
CT-C: profound ascending/arch/descending thoracic aortic calcifications (precluding ability to safely cannulate/cross-clamp), moderate MAC, mild AV calcifications, extensive coronary calcifications, moderate cardiomegaly, small hiatal hernia, severe
thoracic kyphosis w/ severe wedge compression deformities of T2/T3, old fracture/deformity of proximal sternum
LABS: 9.9>9.2 (29.9)<338; 27/0.9; INR 1.22; AST/ALT: 38/23
STS: Morbidity/Mortality: 12.1/26.5% for isolated CABG; 14.7%/36.7% for CABG/AVR [does not account for functional status, porcelain aorta, etc]
--- NOTE | 2023-09-24 11:33 | W.PN.HOSP.TC ---
Today's Communication/Plan
-
monitor vitals
see plan
CT surgery evaluation
will need home o2 eval prior to dc
cw current meds
hopeful dc tomorrow if no surgical intervention
Assessment / Plan
Assessment / Plan
General: Well Developed, Well Nourished, No Apparent Distress and Comfortable
HEENT: NormoCephalic, Anicteric and Moist mucous membranes
Respiratory: Rales
Cardiac: S1/S2 and Regular Rhythm
GI: Soft, Non Tender and Non Distended
Musculoskeletal: No Edema
Skin: Warm and Dry
Neuro: AO x 3
Psych: Calm
Acute hypoxic respiratory failure -due to acute pulmonary edema due to acute heart failure exacerbation and PNA. Placed on BiPAP in the emergency room. now on room air; will need home o2 eval prior to dc
Check echo 09/19 with EF 50%; new wall motion abnormality. cath 09/22 with multivessel CAD, CT surgery evaluated; does not appear to be a good candidate for CABG. Holding Eliquis, Lasix
Acute on chronic heart failure with preserved EF exacerbation -presentation with acute pulmonary edema. Chest x-ray reviewed. BNP 5330. holding IV Lasix. Cardiology following
Chest x-ray noted with possible diffuse interstitial pneumonia
Pro-Joel positive, cw cef and doxy
Legionella, strep neg
Troponin elevation, unclear etiology if it is nonischemic myocardial injury or acute coronary syndrome
Cardiology at this time wanted to manage medically. On Eliquis, Plavix at home
trop peaked 0.7
CAD -with prior LAD stent in June 2022, [facility]. EKG shows atrial sensed ventricular paced rhythm. No previous EKGs available. Continue Plavix.
Essential hypertension with hypertensive emergency -continue metoprolol, losartan. Anticipate blood pressure improvement with diuresis.
Paroxysmal atrial fibrillation - continue Eliquis, amiodarone.
Hyperlipidemia -on simvastatin.
History of stroke
Hypothyroidism -continue levothyroxine.
Permanent pacemaker
Osteoporosis
Limited DNR -no intubation, she is okay with CPR.
Anticipated Discharge: Within 24 hours
Subjective/Interval History
-
Date of Service: September 24, 2023
denies chest pain
Objective Data
-
Labs:
Laboratory Results
09/24/23
04:30
WBC 9.9
Hgb 9.2 L
Hct 29.9 L
Plt Count 338
PT 15.5 H
INR 1.22
APTT 36.8 H
HCO3 30.6 H
Sodium 140
Potassium 3.8
Chloride 104
Carbon Dioxide 29
BUN 27 H
Creatinine 0.9
Glucose 95
Calcium 9.4
Total Bilirubin 0.5
AST 38 H
ALT 23
Alkaline Phosphatase 81
Vital Signs:
Vital Signs
Temp Pulse Resp BP Pulse Ox
98.2 F 65 18 149/55 95
09/24/23 07:08 09/24/23 08:34 09/24/23 07:08 09/24/23 08:34 09/24/23 07:08
I&O
09/23/23 09/24/23 09/25/23
06:59 06:59 06:59
Intake Total 540 / 540
Output Total 925 / 925 500 / 500
Balance -925 / -925 40 / 40 -25 / -25
--- NOTE | 2023-09-24 12:26 | CM ---
Reviewed chart. Met with Mrs. Linn to review discharge plans. She states she is feeling well. We reviewed VNA services with [facility]. She is agreeable to VNA. Prior to admission she resides alone in an apartment at [facility]. Prior to admission she ambulates with a rolling walker in the apartment and short distances and uses a electric wheelchair for longer distances. Currently she ambulates a 120 feet with a rolling walker and supervision. She has a
prescription plan and uses [facility]. Medical work-up in progress. The discharge plan is to return to her apartment with [facility] when medically stable.
--- NOTE | 2023-09-24 13:16 | W.PN.CARDCBS ---
Addendum entered and electronically signed by Sami Young MD 09/24/23 18:19:
Updated patient's family for an additional 25 minutes. We discussed medical therapy for his CAD and CHF. They are agreeable to current treatment plan will follow-up with Dr. Reyes as an outpatient.
Addendum entered and electronically signed by Sami Young MD 09/24/23 16:12:
I saw and examined the patient.
The [employer] or PA's note was reviewed and I agree with the note.
Comment: General: Well developed, well nourished in NAD.
Neck: Supple, no JVD, HJR, carotids +2 B/L, no bruits bilaterally.
Heart: Non displaced PMI, RRR, 2/6 basal systolic murmur, No S3, S4, no rubs.
Lungs: Scattered rhonchi
Extremities: No clubbing, cyanosis or edema bilaterally.
Neuro: Grossly nonfocal, awake, alert and oriented x3.
Discussed with interventional cardiology. She remains without any chest pain. Will continue to treat medically as there is no clear focal stenosis. Ejection fraction remains normal. Will continue Plavix and restart Eliquis that patient was on
prior to admission. Will discuss with daughter
Original Note:
Today's Communication / Plan
-
Resume Lasix 40 mg daily
Replete K+
Resume Losartan
Prohibitive risk for CABG
Awaiting input from Interventional cardiology regarding PCI. If no PCI planned this admission then resume Eliquis
Impression / Plan
-
PCP: Dr. Elissa Franks
Outpatient dispensing operator: Dr. Elijah Reyes
Impression::
Presented 09/19/2023 with progressively worsening shortness of breath
Acute pulmonary edema
Acute HFpEF, proBNP 5350
Elevated Troponin, peaked at 0.722
CAD
s/p 2.75 mm Xience to prox LAD at [facility] 06/2022
MVCAD on cath 09/23/2023
Left carotid stenosis >70% on duplex 09/23/23
Sick sinus syndrome/tachybradycardia syndrome 06/2022
Biotronik permanent pacemaker
HTN
Paroxysmal AF
Chronic Eliquis OAC
h/o CVA
Hyperlipidemia
Kyphosis
Hysterectomy
EVON
Cardiac cath 09/24/2023: LM:LI. LAD: prox to mid 50% w/ IFR abnormal at 0.82, D1 proximal 70 to 80% stenosis. D2 has ostial to proximal 80%. LCX:mild to moderate diffuse dz. RCA prox 60-70%, 70-75% and distal 70-80%. RPDA 2 serial 70%, 80% in lower
branch of RPL
Cardiac catheterization June 2022 ([facility]): Conclusion severe single-vessel CAD with 80 to 90% proximal LAD status post 2.75 x 23 mm Xience LAVON, moderate stenosis in proximal RPL and D1 branches. Normal right and left filling pressures. Preserved
cardiac output and index
Echo 09/03/2022 ([facility]): EF 60 to 65% grade 1 DD. Mild MR. Mild with peak/mean gradient 18/11 mmHg with MUNIRA 1.3 cm�. Trivial pericardial effusion 0.7 cm
Echo 09/20/2023: EF 50 to 55% with lateral wall hypokinesis, possible anterior wall hypokinesis, mild concentric LVH, stage II DD. Mild to mod MR, mod aortic stenosis peak/mean 34/22 mmHg with MUNIRA 0.7 cm�, mild AI. Mild TR, PAP 39 mmHg
CAROTID U/S 09/23/23: <50% R ICA, >70% L ICA, antegrade vert
CT-C 09/23/2023: profound ascending/arch/descending thoracic aortic calcifications (precluding ability to safely cannulate/cross-clamp), moderate MAC, mild AV calcifications, extensive coronary calcifications, moderate cardiomegaly, small hiatal
hernia, severe thoracic kyphosis w/ severe wedge compression deformities of T2/T3, old fracture/deformity of proximal sternum
Plan:
-She presented 09/19/2023 with a progressively worsening shortness of breath, acute pulmonary edema. Abnormal troponin, peaked at 0.72
-Abnormal echo 09/20/23 with new new lateral wall hypokinesis and possible anterior wall hypokinesis and mildly reduced EF 50-55%
-Cardiac cath 09/23/2023 shows multivessel CAD as noted above. CTS consulted who deemed pt prohibitive risk for cardiac surgical intervention with left carotid artery stenosis, profound ascending/arch/descending thoracic aortic calcifications
(precluding ability to safely cannulate/cross-clamp) and other medical issues/comorbidities. Could consider PCI or seeking second opinion at tertiary care center. Will discuss with interventionalists if PCI is an option
-Acute heart failure with preserved EF. Weight is down 3-4 lbs this admission. Pt developed EVON as creat jumped up to 1.3 on 09/21. Lasix and Losartan held. 09/24/23 Creat improved 0.9. Will restart Lasix 40 mg PO daily on 09/24/23.
-K+ 3.8 will replete
-Losartan held 09/22 for EVON. Now resolved and BP elevated. Will resume 50 mg daily 09/24/2023
-Repeat BMP in AM ordered.
-Outpatient dose of Toprol XL 25 mg daily continued.
- is moderate with mean gradient 22 mmHg and MUNIRA 0.7 cm sq which is up compared to echo at [facility] 09/03/22 when mean gradient was 11 and MUNIRA 1.3 cm sq. Patient will follow up with her outpatient dispensing operator for this.
-LDL 86 on outpatient dose of simvastatin 20 mg daily. Changed to atorvastatin 40 mg daily on 09/22/23
-History of paroxysmal atrial fibrillation and tachybradycardia syndrome s/p biotronic PPM. Intermittent pacing noted on tele
-On chronic anti-coagulation w/ Eliquis. This is currently on hold until decision has been made in regards to undergoing PCI this admission. For now continue ASA and Plavix. If no intervention the will resume Eliquis and Plavix. If plan for PCI
this admission then would start Heparin
-Will provide CD to patient and her family to take to Dr. Amy THOMPSON 10/05/23
Plan discussed with patient and both her daughters, nursing at bedside
HPI 09/19/2023: 82-year-old female with past medical history of coronary artery disease/PCI/AK, permanent pacemaker, chronic heart failure with unknown EF, hypertension, paroxysmal atrial fibrillation, CVA, stroke, and osteoporosis presents to
[facility] from [facility] with an episode of sudden shortness of breath and respiratory distress. She states she was in her usual state of health had dinner at [facility] when suddenly had an episode of severe shortness of breath,
orthopnea was unable to breathe. She denied any overt chest pains. She was called and she was brought to the [facility] emergency room where she was found to be in respiratory distress requiring BiPAP, high. Nitroglycerin, and morphine. She was
treated with IV Lasix where she clinically improved. She states that she had an episode of congestive heart failure in December 2022. She also had a pacemaker placed in the setting of a PCI in June 2022. Her family states she has other
significant coronary artery disease. She currently feels well with no palpitations, dizziness, or dyspnea.
Progress Note - [employer]
Subjective
Date of Service: September 24, 2023
Patient seen and examined. Both daughters at bedside. She reports that she is feeling well. No longer SOB and denies chest pain. She was able to walk around the unit today w/ PT/OT with no issues or cardiac symptoms
Objective
Labs:
09/24/23 04:30
09/24/23 04:30
Labs
Hgb 9.2 g/dL (12.0-16.0) L 09/24/23 04:30
Hct 29.9 % (37.0-47.0) L 09/24/23 04:30
Plt Count 338 10^3/uL (130-400) 09/24/23 04:30
PT 15.5 Sec (11.4-14.6) H 09/24/23 04:30
INR 1.22 09/24/23 04:30
APTT 36.8 Sec (23.4-35.0) H 09/24/23 04:30
Sodium 140 mmol/L (135-145) 09/24/23 04:30
Potassium 3.8 mmol/L (3.5-5.1) 09/24/23 04:30
BUN 27 mg/dl (7-17) H 09/24/23 04:30
Creatinine 0.9 mg/dL (0.6-1.0) 09/24/23 04:30
Glucose 95 mg/dl (70-99) 09/24/23 04:30
Vital Signs and I&O:
Vital Signs
Temp Pulse Resp BP Pulse Ox
98.0 F 65 18 149/55 95
09/24/23 11:56 09/24/23 08:34 09/24/23 11:56 09/24/23 08:34 09/24/23 11:56
Vital Signs
Temp Pulse Resp BP Pulse Ox
98.0 F 65 18 149/55 95
09/24/23 11:56 09/24/23 08:34 09/24/23 11:56 09/24/23 08:34 09/24/23 11:56
Intake & Output
09/22/23 09/23/23 09/24/23 09/25/23
06:59 06:59 06:59 06:59
Intake Total 540 / 540
Output Total 550 / 550 925 / 925 500 / 500
Balance -550 / -550 -925 / -925 40 / 40 -25 / -25
Physical Exam
Physical Exam
GEN: No distress, awake, Ox3; sitting up in bed
HEENT: supple, anicteric, mmm
LUNGS: Mildly diminished BS throughout, no wheezes or crackles, improved, no wheezes/rales; on room air
CV: Reg, S1/S2, 2/6 harsh radiating systolic murmur, no rub or gallop
ABD: soft, BS+, NT/ND
EXT: No lower extremity edema
NEURO: Gross non-focal
SKIN: No rash, warm, dry, pink
[2023-09-24] MEDS: KCL 40 MEQ PO (15:09)
[2023-09-24] MEDS: LASIX 40 MG PO (15:10)
[2023-09-24] MEDS: STERILE WATER FOR INJECTION 10 ML IV (15:12)
[2023-09-24] MEDS: ROCEPHIN 1000 MG IV (15:12)
[2023-09-24] MEDS: LIPITOR 40 MG PO (17:52)
--- NOTE | 2023-09-24 19:05 | PTCARENOTE ---
pt continues to be av paved on the monitor, hr in the 60s, vss. pt has had multiple loose brown stools, notified dr. de paz ordered stool for cdiff, collected as ordered. pt and family educated on plan of care and pt verbalized understanding. pt has
been OOB to BR and chair throughout the day with no complaints. call rosas within reach.
[2023-09-24] MEDS: ELIQUIS 5 MG PO (20:34)
--- NOTE | 2023-09-25 01:18 | PTCARENOTE ---
No specific complaints, 'Just can't sleep', restless. No complaints of pain. Voiding clear yellow urine. A-paced, and A-V paced on the monitor and at times SR in the 60's.
[2023-09-25 05:09] VITALS: BP 170/66
[2023-09-25] MEDS: SYNTHROID 100 MCG PO (05:11)
[2023-09-25 05:31] LABS: % Basophils 0.5 % (0-2); % Eosinophils 0.7 % (0-6); % Immature Granulocytes 0.6 % (0-0.5); % Lymphocytes 13.4 % (20.5-51.1); % Monocytes 10.8 % (1.7-9.3); Absolute Eosinophils 0.1 10^3/uL (0-0.7); Absolute Immature Granulocytes 0.1 10^3/uL (0-0.05); Absolute Lymphocytes 1.2 10^3/uL (1.2-3.4); Absolute Neutrophils 6.6 10^3/uL (1.4-6.5); Hematocrit 28.1 % (37.0-47.0); Hemoglobin 8.6 g/dL (12.0-16.0); Mean Corp Hgb Conc. 30.6 g/dL (33.0-37.0); Mean Corpuscular Hgb 24.8 pg (27.0-31.0); Mean Platelet Volume 9.6 fL (7.4-10.4); Nucleated Red Blood Cells % 0 %; Platelet Count 297 10^3/uL (130-400); Red Blood Cell Count 3.47 10^6/uL (4.20-5.40); Red Cell Dist. Width 15.7 % (11.5-14.5); White Blood Cell Count 8.9 10^3/uL (4.8-10.8)
[2023-09-25 05:54] LABS: Blood Urea Nitrogen 26 mg/dl (7-17); Calcium 9.1 mg/dl (8.4-10.2); Carbon Dioxide 29 mmol/L (22-30); Chloride 105 mmol/L (98-107); Estimated Creatinine Clearance 41 ml/min; Glucose 91 mg/dl (70-99); Potassium 4.2 mmol/L (3.5-5.1); Sodium 139 mmol/L (135-145); eGFR 56.95
--- NOTE | 2023-09-25 07:17 | W.PN.CARDCBS ---
Addendum entered and electronically signed by Sami Young MD 09/25/23 08:45:
I saw and examined the patient.
The PERSONAL CARE WORKER or PA's note was reviewed and I agree with the note.
Comment: General: Well developed, well nourished in NAD.
Neck: Supple, no JVD, HJR, carotids +2 B/L, no bruits bilaterally.
Heart: Non displaced PMI, RRR, 2/6 basal systolic murmur, No S3, S4, no rubs.
Lungs: Scattered rhonchi
Extremities: No clubbing, cyanosis or edema bilaterally.
Neuro: Grossly nonfocal, awake, alert and oriented x3.
Stable cardiology status for discharge. Follow-up with Dr. Reyes at [facility] has already been set up. Discussed in detail with family on 09/23. She will be discharged on higher Toprol dose and simvastatin changed to Lipitor. Continue Plavix and
Eliquis.
Original Note:
Today's Communication / Plan
-
Continue medical therapy with Plavix, losartan, and Toprol
Simvastatin changed to Lipitor
Continue Eliquis for AC
Follow up with primary calculus tutor arranged
Impression / Plan
-
PCP: Dr. Elissa Franks
Outpatient calculus tutor: Dr. Elijah Reyes
Impression:
Presented 09/19/2023 with progressively worsening shortness of breath
Acute pulmonary edema
Acute HFpEF, proBNP 5350
Elevated Troponin, peaked at 0.722
CAD
s/p 2.75 mm Xience to prox LAD at [facility] 06/2022
MVCAD on cath 09/23/2023
Left carotid stenosis >70% on duplex 09/23/23
Sick sinus syndrome/tachybradycardia syndrome 06/2022
Biotronik permanent pacemaker
HTN
Paroxysmal AF
Chronic Eliquis OAC
h/o CVA
Hyperlipidemia
Kyphosis
Hysterectomy
EVON
Cardiac cath 09/24/2023: LM:LI. LAD: prox to mid 50% w/ IFR abnormal at 0.82, D1 proximal 70 to 80% stenosis. D2 has ostial to proximal 80%. LCX:mild to moderate diffuse dz. RCA prox 60-70%, 70-75% and distal 70-80%. RPDA 2 serial 70%, 80% in lower
branch of RPL
Cardiac catheterization June 2022 ([facility]): Conclusion severe single-vessel CAD with 80 to 90% proximal LAD status post 2.75 x 23 mm Xience LAVON, moderate stenosis in proximal RPL and D1 branches. Normal right and left filling pressures. Preserved
cardiac output and index
Echo 09/03/2022 ([facility]): EF 60 to 65% grade 1 DD. Mild MR. Mild with peak/mean gradient 18/11 mmHg with MUNIRA 1.3 cm�. Trivial pericardial effusion 0.7 cm
Echo 09/20/2023: EF 50 to 55% with lateral wall hypokinesis, possible anterior wall hypokinesis, mild concentric LVH, stage II DD. Mild to mod MR, mod aortic stenosis peak/mean 34/22 mmHg with MUNIRA 0.7 cm�, mild AI. Mild TR, PAP 39 mmHg
CAROTID U/S 09/23/23: <50% R ICA, >70% L ICA, antegrade vert
CT-C 09/23/2023: profound ascending/arch/descending thoracic aortic calcifications (precluding ability to safely cannulate/cross-clamp), moderate MAC, mild AV calcifications, extensive coronary calcifications, moderate cardiomegaly, small hiatal
hernia, severe thoracic kyphosis w/ severe wedge compression deformities of T2/T3, old fracture/deformity of proximal sternum
Plan:
-She presented 09/19/2023 with a progressively worsening shortness of breath, acute pulmonary edema. Abnormal troponin, peaked at 0.72
-Echo 09/20/23 with new new lateral wall hypokinesis and possible anterior wall hypokinesis and mildly reduced EF 50-55%
-Cardiac cath 09/23/2023 shows multivessel CAD as noted above. CTS consulted who deemed pt prohibitive risk for cardiac surgical intervention with left carotid artery stenosis, profound ascending/arch/descending thoracic aortic calcifications
(precluding ability to safely cannulate/cross-clamp) and other medical issues/comorbidities.
-It is possible that there could be consideration for PCI in the future, however plan currently is for medical therapy.
-Continue PO lasix 40 mg daily. Creat stable at 1.0, weight down to 158lbs.
-K stable at 4.2
-Continue medical therapy with losartan, Toprol, and Eliquis and plavix.
-LDL 86 on outpatient dose of simvastatin 20 mg daily. Changed to atorvastatin 40 mg daily this admission.
-History of paroxysmal atrial fibrillation and tachybradycardia syndrome s/p Biotronik PPM. Intermittent pacing noted on tele
-Did note some SOB overnight. Pulse ox stable. Will have patient ambulate around the unit to see how she feels.
-Follow up with her primary calculus tutor as OP.
HPI 09/19/2023: 82-year-old female with past medical history of coronary artery disease/PCI/IA, permanent pacemaker, chronic heart failure with unknown EF, hypertension, paroxysmal atrial fibrillation, CVA, stroke, and osteoporosis presents to
[facility] from [facility] with an episode of sudden shortness of breath and respiratory distress. She states she was in her usual state of health had dinner at [facility] when suddenly had an episode of severe shortness of breath,
orthopnea was unable to breathe. She denied any overt chest pains. She was called and she was brought to the [place] emergency room where she was found to be in respiratory distress requiring BiPAP, high. Nitroglycerin, and morphine. She was
treated with IV Lasix where she clinically improved. She states that she had an episode of congestive heart failure in December 2022. She also had a pacemaker placed in the setting of a PCI in June 2022. Her family states she has other
significant coronary artery disease. She currently feels well with no palpitations, dizziness, or dyspnea.
Progress Note - Jail Manager
Subjective
Date of Service: September 25, 2023
Feeling well, but did note some SOB overnight.
Objective
Labs:
09/25/23 05:22
09/25/23 05:22
Labs
Hgb 8.6 g/dL (12.0-16.0) L 09/25/23 05:22
Hct 28.1 % (37.0-47.0) L 09/25/23 05:22
Plt Count 297 10^3/uL (130-400) 09/25/23 05:22
PT 15.5 Sec (11.4-14.6) H 09/24/23 04:30
INR 1.22 09/24/23 04:30
APTT 36.8 Sec (23.4-35.0) H 09/24/23 04:30
Sodium 139 mmol/L (135-145) 09/25/23 05:22
Potassium 4.2 mmol/L (3.5-5.1) 09/25/23 05:22
BUN 26 mg/dl (7-17) H 09/25/23 05:22
Creatinine 1.0 mg/dL (0.6-1.0) 09/25/23 05:22
Glucose 91 mg/dl (70-99) 09/25/23 05:22
Vital Signs and I&O:
Vital Signs
Temp Pulse Resp BP Pulse Ox
98.6 F 63 18 170/66 92
09/25/23 05:05 09/25/23 06:00 09/25/23 05:05 09/25/23 05:09 09/25/23 05:05
Vital Signs
Temp Pulse Resp BP Pulse Ox
98.6 F 63 18 170/66 92
09/25/23 05:05 09/25/23 06:00 09/25/23 05:05 09/25/23 05:09 09/25/23 05:05
Intake & Output
09/23/23 09/24/23 09/25/23 09/26/23
06:59 06:59 06:59 06:59
Intake Total 540 / 540
Output Total 925 / 925 500 / 500 625 / 625
Balance -925 / -925 40 / 40 -625 / -625
Physical Exam
Physical Exam
GEN: No distress, awake, Ox3
HEENT: supple, anicteric, mmm
LUNGS: Mildly diminished BS throughout, no wheezes or crackles
CV: Reg, S1/S2, 2/6 harsh radiating systolic murmur, no rub or gallop
EXT: No clubbing, cyanosis, or lower extremity edema
NEURO: Gross non-focal
SKIN: warm, dry, pink, no rash
[2023-09-25 08:00] VITALS: BP 151/70
[2023-09-25] MEDS: PROTONIX 40 MG PO (08:12)
[2023-09-25] MEDS: PACERONE 200 MG PO (08:12)
[2023-09-25] MEDS: VISBIOME 1 CAP PO (08:12)
[2023-09-25] MEDS: TOPROL XL 25 MG PO (08:13)
[2023-09-25] MEDS: PLAVIX 75 MG PO (08:13)
[2023-09-25] MEDS: ELIQUIS 5 MG PO (08:13)
[2023-09-25] MEDS: COZAAR 50 MG PO (08:13)
[2023-09-25] MEDS: LASIX 40 MG PO (08:13)
[2023-09-25] MEDS: DESENEX/MITRAZOL/ZEASORB 1 APPLIC TOPICAL (08:13)
[2023-09-25] MEDS: VIBRAMYCIN 100 MG PO (08:13)
--- NOTE | 2023-09-25 10:39 | PTCARENOTE ---
Pt is AOx3, no complaints of pain or discomfort. Assist x1 OOB to bedside commode. VSS, SR on tele monitor. Call rosas within reach.
[2023-09-25 10:57] LABS: Glycohemoglobin (HgbA1c) 5.4 % (4.0-5.6)
--- NOTE | 2023-09-25 11:13 | W.PN.HOSP.TC ---
Today's Communication/Plan
-
Monitor vitals
see plan
Daughter updated over the phone
Spoke with vascular surgeon; instructed the patient follow-up with them outpatient regarding her carotids outpatient
dc today
time of discharge 37 minutes
Assessment / Plan
Assessment / Plan
General: Well Developed, Well Nourished, No Apparent Distress and Comfortable
HEENT: NormoCephalic, Anicteric and Moist mucous membranes
Respiratory: Rales
Cardiac: S1/S2 and Regular Rhythm
GI: Soft, Non Tender and Non Distended
Musculoskeletal: No Edema
Skin: Warm and Dry
Neuro: AO x 3
Psych: Calm
Acute hypoxic respiratory failure -due to acute pulmonary edema due to acute heart failure exacerbation and PNA. Placed on BiPAP in the emergency room. now on room air; does not need home o2
Check echo 09/19 with EF 50%; new wall motion abnormality. cath 09/22 with multivessel CAD, CT surgery evaluated; does not appear to be a good candidate for CABG. now on PO lasix. Patient will follow-up with cardiology outpatient
Acute on chronic heart failure with preserved EF exacerbation -presentation with acute pulmonary edema. Chest x-ray reviewed. BNP 5330. now on PO lasix. Cardiology following
Chest x-ray noted with possible diffuse interstitial pneumonia
Pro-Joel positive, cw cef and doxy; switch to cefdinir and doxy to complete course
Legionella, strep neg
Left carotid stenosis
US carotids noted
patient to follow up with vascular soon outpatient
spoke with Dr. Meryl Rodriguez and she recommended patient to follow up with Dr Louise outpatient
Troponin elevation, unclear etiology if it is nonischemic myocardial injury or acute coronary syndrome
Cardiology at this time wanted to manage medically. On Eliquis, Plavix at home
trop peaked 0.7
CAD -with prior LAD stent in June 2022, [facility]. EKG shows atrial sensed ventricular paced rhythm. No previous EKGs available. Continue Plavix.
Essential hypertension with hypertensive emergency -continue metoprolol, losartan. Anticipate blood pressure improvement with diuresis.
Paroxysmal atrial fibrillation - continue Eliquis, amiodarone.
Hyperlipidemia -on simvastatin.
History of stroke
Hypothyroidism -continue levothyroxine.
Permanent pacemaker
Osteoporosis
Limited DNR -no intubation, she is okay with CPR.
Anticipated Discharge: Today
Subjective/Interval History
-
Date of Service: September 25, 2023
denies pain
Objective Data
-
Labs:
Laboratory Results
09/25/23
05:22
WBC 8.9
Hgb 8.6 L
Hct 28.1 L
Plt Count 297
Sodium 139
Potassium 4.2
Chloride 105
Carbon Dioxide 29
BUN 26 H
Creatinine 1.0
Glucose 91
Calcium 9.1
Vital Signs:
Vital Signs
Temp Pulse Resp BP Pulse Ox
98.5 F 63 18 151/70 93
09/25/23 08:00 09/25/23 09:00 09/25/23 08:00 09/25/23 08:12 09/25/23 08:00
I&O
09/24/23 09/25/23 09/26/23
06:59 06:59 06:59
Intake Total 540 / 540
Output Total 500 / 500 625 / 625
Balance 40 / 40 -625 / -625
[2023-09-25 11:19] VITALS: BP 129/42
--- NOTE | 2023-09-25 11:48 | W.DCSUMMARY ---
Discharge Summary
Discharge Data
Date of Admission: 09/19/23
Date of Discharge: 09/25/23
-
Pending Results: No
Hospital Course
82-year-old female with past medical history of CHF, CAD, essential hypertension, proximal atrial fibrillation, hyperlipidemia, stroke, hypothyroidism, permanent pacemaker, osteoporosis came to the hospital with acute hypoxic respiratory failure
secondary to acute pulmonary edema due to congestive heart failure exacerbation and pneumonia. Patient procalcitonin was elevated so was treated with IV antibiotics initially which was later transitioned to p.o. antibiotics. Patient initially
required BiPAP however over time her oxygenation improved to room air prior to discharge. Echocardiogram was done which showed ejection fraction of 50% with new wall motion abnormality. Given these findings patient underwent cardiac
catheterization which showed multivessel coronary artery disease so CT surgery was consulted. With CT surgery evaluation they did not seem patient is a good candidate for cardiac bypass. During evaluation for CABG, ultrasound of the carotid was
consistent with left ICA stenosis. I did discuss these findings with Dr. Meryl Rodriguez from vascular surgery who recommended patient to follow-up with Dr. Louise outpatient upon discharge. Once patient symptoms continue to improve, she was then
discharged home with instructions to follow-up with all the physicians outpatient.
Discharge Plan
-
Patient Disposition: Home (Routine Discharge)
Discharge Diagnosis/Procedures: Acute pulmonary edema secondary to acute on chronic congestive heart failure with preserved ejection fraction
Coronary artery disease with elevated troponin status postcardiac catheterization
Left carotid artery stenosis
Pneumonia
Diet: As tolerated
Activity: As tolerated
Driving Restrictions: As prior to admission
Bathing Restrictions: None
Blood Work: BMP next week with primary care provider
Instructions: *PCP/Other Legal Financial Specialist Heart Failure Instructions
Stand Alone Forms: DC Instructions- Cath/EP Lab
Referrals:
[facility] [Other] (Fax number is [phone].)
Elijah Reyes [Non-Admitting Privileges] - 10/05/23 11:15 am (You have cardiology follow-up with Dr. Reyes on October 04 at 11:15 AM. If you are unable to make this appointment please call [phone] to reschedule)
Robles Louise III, MD [Active] - in less than 1 week
UNKNOWN - PT NOT,INTERVIEWE [Unknown Provider] -
Prescriptions:
New
miconazole nitrate [Miconazorb AF] 2 % Powder
1 applic topical BID Qty: 85 0RF
furosemide 40 mg Tablet
40 mg PO DAILY Qty: 30 0RF
atorvastatin 40 mg Tablet
40 mg PO QPM Qty: 30 0RF
doxycycline hyclate 100 mg Capsule
100 mg PO Q12 Qty: 4 0RF
Lactobac/Bifidobac [Visbiome]
1 cap PO DAILY Qty: 2 0RF
cefdinir 300 mg capsule
300 mg PO BID Qty: 4 0RF
acetaminophen 325 mg Tablet
650 mg PO Q6HPRN PRN (Reason: mild pain/ fever>100.5F) Qty: 0 0RF
amiodarone 200 mg Tablet
200 mg PO DAILY Qty: 30 0RF
pantoprazole 40 mg Tablet,Delayed Release (Dr/Ec)
40 mg PO DAILY Qty: 30 0RF
Continued
losartan 50 mg Tablet
50 mg PO DAILY
sennosides [senna] 8.6 mg Tablet
8.6 mg PO HS
trazodone 50 mg Tablet
25 mg PO HS PRN (Reason: f no asleep from 1st dose and wakes up at 2am)
clopidogrel [Plavix] 75 mg Tablet
75 mg PO DAILY
calcium carbonate [Calcium 600] 600 mg calcium (1,500 mg) Tablet
600 mg PO DAILY
Eliquis 5 mg Tablet
5 mg PO BID
trazodone 50 mg tablet
50 mg PO HS
alendronate 70 mg tablet
70 mg PO MO
levothyroxine 100 mcg tablet
100 mcg PO DAILY
multivitamin Tablet
1 tab PO DAILY
Changed
metoprolol succinate [Toprol XL] 25 mg Tablet Extended Release 24 Hr
25 mg PO BID Qty: 60 0RF
Discontinued
furosemide [Lasix] 20 mg Tablet
20 mg PO DAILY
simvastatin 20 mg tablet
20 mg PO HS
Discharge Orders:
Discharge Patient (As Directed); Ordered 09/25/23
Ordered By: Jerome Ma
Care Plan Goals
Care Plan Goals:
Problem: Readiness for enhanced knowledge related to diagnosis and treatment plan
Goal: Understand your diagnosis and treatment plan needs, including medications if applicable.
Instructions: Know your diagnosis, underlying causes and treatment plan options, including medications if applicable. Consult with your health care team to learn about your diagnosis and treatment plan, including medications if applicable.
Discharge Date and Time
Print Language: UKRAINIAN
[2023-09-25 15:16] VITALS: BP 181/40
[2023-09-25 15:18] VITALS: BP 168/55
--- NOTE | 2023-09-25 16:56 | PTCARENOTE ---
Pt family reported that [facility] was unclear about medication changes post discharge. RN made Dr Ma aware, sent [facility] different [facility]. Family updated. Pt discharged in stable condition, with all belongings and paperwork.
== END 2023-09-25 17:17 | disposition home health service (06) | DRG 193 ==
LOC: IVU 09:33
PROVIDERS: Internal Medicine Interventional Cardiology; Nurse Practitioner; ADMITTING PHYSICIAN Hospitalist; ATTENDING PHYSICIAN Internal Medicine; CONSULT PHYSICIAN Internal Medicine Cardiovascular Disease; CONSULT PHYSICIAN Thoracic Surgery (Cardiothoracic Vascular Surgery); EMERGENCY PHYSICIAN Emergency Medicine; FAMILY PHYSICIAN Internal Medicine Geriatric Medicine
PROC: 5A19054 Respiratory Ventilation, Single, Nonmechanical (ICD-10-PCS; 2023-09-19)
PROC: 5A09357 Assistance with Respiratory Ventilation, Less than 24 Consecutive Hours, Continuous Positive Airway Pressure (ICD-10-PCS; 2023-09-19)
PROC: B2111ZZ Fluoroscopy of Multiple Coronary Arteries using Low Osmolar Contrast (ICD-10-PCS; 2023-09-23)
PROC: 4A023N7 Measurement of Cardiac Sampling and Pressure, Left Heart, Percutaneous Approach (ICD-10-PCS; 2023-09-23)
PROC: 4A033BC Measurement of Arterial Pressure, Coronary, Percutaneous Approach (ICD-10-PCS; 2023-09-23)
DX: J18.9 Pneumonia, unspecified organism (principal); I50.33 Acute on chronic diastolic (congestive) heart failure; J96.01 Acute respiratory failure with hypoxia; I16.1 Hypertensive emergency; N17.9 Acute kidney failure, unspecified; I11.0 Hypertensive heart disease with heart failure; E03.9 Hypothyroidism, unspecified; I65.22 Occlusion and stenosis of left carotid artery; I49.5 Sick sinus syndrome; I25.10 Atherosclerotic heart disease of native coronary artery without angina pectoris; I25.2 Old myocardial infarction; Z95.5 Presence of coronary angioplasty implant and graft; I48.0 Paroxysmal atrial fibrillation; E78.5 Hyperlipidemia, unspecified; M81.0 Age-related osteoporosis without current pathological fracture; R79.89 Other specified abnormal findings of blood chemistry; R26.89 Other abnormalities of gait and mobility; Z86.73 Personal history of transient ischemic attack (TIA), and cerebral infarction without residual deficits; Z95.0 Presence of cardiac pacemaker; Z79.890 Hormone replacement therapy; Z79.899 Other long term (current) drug therapy
CPT/HCPCS: 94727; 94729; 36600; 71045; 71046; 71250; 80048; 80053; 80061; 81003; 82248; 82805; 83036; 83605; 83880; 84145; 84484; 85025; 85610; 85730; 86850; 86900; 86901; 87045; 87046; 87070; 87077; 87324; 87427; 87449; 87899; 89055; 93005; 93306; 93458; 93571; 93880; 94060; 94640; 94660; 96374; 96375; 97116; 97162; 97166; 97530; 97535; 99152; 99153; 99291; C1769; C1894; Q9967